=== PATIENT | female | born 1970 | race Caucasian/White ===

== ENCOUNTER 2020-02-17 15:01 | Observation (INO) ==
[2020-02-17 17:46] LABS: AMYLASE 16 Units/L (25-115); BLOOD UREA NITROGEN 9 mg/dL (7-18); CALCIUM 8.8 mg/dL (8.5-10.1); CARBON DIOXIDE 33.5 mmol/L (21-32); CHLORIDE 100 mmol/L (98-107); COR NA(FOR HYPERGLY) 138 mmol/L (136-145); CREATININE 1.13 mg/dL (0.55-1.02); LIPASE 89 Units/L (73-393); SODIUM 137 mmol/L (136-145); eGFR NON BLACK RACES 54 (>60)
[2020-02-17] MEDS ORDERED: D5 NS + KCL 20 MEQ/L 1,000 ML IV SCH (18:00)
[2020-02-17] MEDS ORDERED: D5 1/2 NS 1000 ML 1,000 ML IV SCH (18:00)
[2020-02-17] MEDS ORDERED: D5 1/2 NS + KCL 20 MEQ/L 1,000 ML IV ONE (18:06)
[2020-02-17 18:19] LABS: BASOPHILS % (AUTO) 0.5 % (0.2-1.0); EOSINOPHILS # (AUTO) 0.2 x10^3/uL (0.0-0.2); EOSINOPHILS % (AUTO) 2.7 % (0.9-2.9); HEMATOCRIT 34.4 % (36.0-47.0); HEMOGLOBIN 11.7 g/dL (12.0-16.0); LYMPHOCYTES # (AUTO) 0.6 X10^3/uL (1.3-2.9); LYMPHOCYTES % (AUTO) 9.8 % (21.0-51.0); MEAN CORPUSCULAR HGB CONC 34.1 g/dL (33.0-35.0); MEAN PLATELET VOLUME 11.5 fL (7.4-11.0); MONOCYTES # (AUTO) 1.1 x10^3/uL (0.3-0.8); MONOCYTES % (AUTO) 19.5 % (0.0-13.0); NEUTROPHILS % (AUTO) 67.5 % (42.0-75.0); PLATELET COUNT 157 X10^3/uL (150.0-450.0); RED BLOOD COUNT 3.77 X10^6/uL (3.5-5.4); RED CELL DISTRIBUTION WIDTH 13.1 % (11.6-16.5); WHITE BLOOD COUNT 5.9 X10^3/uL (3.6-10.0)
[2020-02-17] MEDS: FLAGYL IV PREMIX 500 MG BAG 500 MG/100 ML BAG IV SCH (18:19)
[2020-02-17] MEDS: D5 1/2 NS + KCL 20 MEQ/L 1,000 ML IV SCH (18:19)
[2020-02-17] MEDS: PROTONIX INJ 40 MG VIAL IVP SCH (18:20)
[2020-02-17] MEDS: ZOFRAN INJ 4 MG VIAL IVP PRN (18:50)
--- NOTE | 2020-02-17 22:46 | CT ---
CT abdomen and pelvis with contrastIndication: Abdominal pain and diarrheaTECHNIQUEHelical images through the abdomen and pelvis after IV and oral contrast. Coronal and sagittal reformats providedCOMPARISONNone availableFINDINGSLimited images through the lung bases demonstrate no acute abnormality. Review of bone windows demonstrates no destructive osseous lesion with mild SI joint DJDAbdomen: The upper portion of the liver is excluded from the field of view as is the spleen. However, there is attic steatosis. Cholelithiasis is noted. The spleen, pancreas and adrenal glands are normal. The kidneys demonstrate no hydroureteronephrosis.The stomach and small bowel are normal with oral contrast reaching the cecum without obstruction. The appendix is normal. The colon is relatively diffusely thick-walled, with perhaps the rectum and lower sigmoid colon appearing more normal.Few vascular calcifications are noted. The kidneys show no hydroureteronephrosis or stonePelvis: Urinary bladder, rectum, uterus and adnexa demonstrate no acute abnormality.IMPRESSION1. Colonic inflammation, generally worse proximally suggesting either inflammatory or infectious colitis. Correlate clinically2. Hepatic steatosis, diverticulosis, few vascular calcifications, spine DJD and other findings as above.Electronically signed by: VALENCIA BLACKWELL (Feb 17, 2020 22:44:31)
[2020-02-18] MEDS: D5 1/2 NS + KCL 20 MEQ/L 1,000 ML IV SCH ×3 (02:10→18:05)
[2020-02-18] MEDS: FLAGYL IV PREMIX 500 MG BAG 500 MG/100 ML BAG IV SCH ×3 (02:11→17:59)
[2020-02-18] MEDS: ZOFRAN INJ 4 MG VIAL IVP PRN ×2 (03:54→09:00)
[2020-02-18 07:26] LABS: BASOPHILS % (AUTO) 0.8 % (0.2-1.0); EOSINOPHILS # (AUTO) 0.1 x10^3/uL (0.0-0.2); EOSINOPHILS % (AUTO) 2.4 % (0.9-2.9); HEMATOCRIT 31.5 % (36.0-47.0); HEMOGLOBIN 10.7 g/dL (12.0-16.0); LYMPHOCYTES # (AUTO) 0.8 X10^3/uL (1.3-2.9); LYMPHOCYTES % (AUTO) 14.1 % (21.0-51.0); MEAN CORPUSCULAR HEMOGLOBIN 30.4 pg (27.0-34.0); MEAN CORPUSCULAR HGB CONC 33.9 g/dL (33.0-35.0); MEAN CORPUSCULAR VOLUME 89.6 fL (80.0-100.0); MEAN PLATELET VOLUME 10.4 fL (7.4-11.0); MONOCYTES # (AUTO) 1.1 x10^3/uL (0.3-0.8); MONOCYTES % (AUTO) 18.9 % (0.0-13.0); NEUTROPHILS # (AUTO) 3.8 x10^3/uL (2.2-4.8); NEUTROPHILS % (AUTO) 63.8 % (42.0-75.0); PLATELET COUNT 158 X10^3/uL (150.0-450.0); RED BLOOD COUNT 3.52 X10^6/uL (3.5-5.4); RED CELL DISTRIBUTION WIDTH 13.2 % (11.6-16.5)
[2020-02-18 07:31] LABS: BLOOD UREA NITROGEN 4 mg/dL (7-18); CALCIUM 8.2 mg/dL (8.5-10.1); CARBON DIOXIDE 30.1 mmol/L (21-32); CHLORIDE 100 mmol/L (98-107); COR NA(FOR HYPERGLY) 139 mmol/L (136-145); CREATININE 0.88 mg/dL (0.55-1.02); MAGNESIUM 1.6 mg/dL (1.7-2.9); SODIUM 138 mmol/L (136-145); eGFR NON BLACK RACES > 60 (>60)
[2020-02-18] MEDS ORDERED: K-DUR TAB 20 MEQ PO ONE ×2 (08:20→08:24)
[2020-02-18] MEDS: PROTONIX INJ 40 MG VIAL IVP SCH (08:25)
[2020-02-18] MEDS: SOLU-Medrol 40 MG VIAL IVP SCH ×3 (08:25→21:00)
--- NOTE | 2020-02-18 08:25 | DR.PROGNOT ---
Hospital Progress Notes - Progress Note for Day of: Progress Note Date: 02/18/20 - Chief Complaint Chief Complaint: still having severe diarrhea and abdominal pain more upper and RUQ . c/o nausea and having low grade fever . K 2.9. CBC and CMP otherwise normal . out Pt C-Dif was negative .. occult blood was positive. CT showed gallstones and proximal colitis . - Past Medical Family Social History Past Med/Fam/Surg Hx: No changes since H&P Allergies: Allergies No Known Drug Allergies Allergy (Verified 02/17/20 17:09) - Review Of Systems ROS: No change since H&P - Vital Signs Vital Signs: Temperature 99.9 F Pulse Rate [Left Brachial] 82 Respiratory Rate 20 Blood Pressure [Left Arm] 130/70 O2 Sat by Pulse Oximetry 97 - Physical Exam Oriented: Normal Eyes: Normal Ear: Normal Nose: Normal Throat: Normal Respiratory: Normal Cardiovascular: Normal : Normal GI:Auscultation: Decreased GI: Tenderness: Diffuse, RUQ (soft abdomen with diffuse tenderness more RUQ and epigastric .no rebound ) Skin: Normal Musculoskeletal: Normal Psychiatric: Normal Speech Pattern: Clear - Laboratory and Diagnostics Result Diagrams: 02/18/20 07:14 02/18/20 07:14 Labs: Laboratory WBC 6.0 X10^3/uL (3.6-10.0) 02/18/20 07:14 RBC 3.52 X10^6/uL (3.5-5.4) 02/18/20 07:14 Hgb 10.7 g/dL (12.0-16.0) L 02/18/20 07:14 Hct 31.5 % (36.0-47.0) L 02/18/20 07:14 MCV 89.6 fL (80.0-100.0) 02/18/20 07:14 MCH 30.4 pg (27.0-34.0) 02/18/20 07:14 MCHC 33.9 g/dL (33.0-35.0) 02/18/20 07:14 RDW 13.2 % (11.6-16.5) 02/18/20 07:14 Plt Count 158 X10^3/uL (150.0-450.0) 02/18/20 07:14 Plt Count Comment Cancelled 02/17/20 17:24 MPV 10.4 fL (7.4-11.0) 02/18/20 07:14 Neut % (Auto) 63.8 % (42.0-75.0) 02/18/20 07:14 Lymph % (Auto) 14.1 % (21.0-51.0) L 02/18/20 07:14 [place] % (Auto) 18.9 % (0.0-13.0) H 02/18/20 07:14 Eos % (Auto) 2.4 % (0.9-2.9) 02/18/20 07:14 Baso % (Auto) 0.8 % (0.2-1.0) 02/18/20 07:14 Neut # (Auto) 3.8 x10^3/uL (2.2-4.8) 02/18/20 07:14 Lymph # (Auto) 0.8 X10^3/uL (1.3-2.9) L 02/18/20 07:14 [place] # (Auto) 1.1 x10^3/uL (0.3-0.8) H 02/18/20 07:14 Eos # (Auto) 0.1 x10^3/uL (0.0-0.2) 02/18/20 07:14 Baso # (Auto) 0.0 X10^3/uL (0.0-0.1) 02/18/20 07:14 Absolute Nucleated RBC 0.1 /100WBC 02/18/20 07:14 Total Counted Cancelled 02/17/20 17:24 Neutrophils % (Manual) Cancelled 02/17/20 17:24 Band Neutrophils % Cancelled 02/17/20 17:24 Lymphocytes % (Manual) Cancelled 02/17/20 17:24 Monocytes % (Manual) Cancelled 02/17/20 17:24 Eosinophils % (Manual) Cancelled 02/17/20 17:24 Basophils % (Manual) Cancelled 02/17/20 17:24 Metamyelocytes % Cancelled 02/17/20 17:24 Myelocytes % Cancelled 02/17/20 17:24 Promyelocytes % Cancelled 02/17/20 17:24 Nucleated RBCs Cancelled 02/17/20 17:24 Atypical Lymphocytes Cancelled 02/17/20 17:24 Blast Cells Cancelled 02/17/20 17:24 Smudge Cells Cancelled 02/17/20 17:24 Toxic Granulation Cancelled 02/17/20 17:24 Dohle Bodies Cancelled 02/17/20 17:24 Ld Rods Cancelled 02/17/20 17:24 Plt Clumps, EDTA Cancelled 02/17/20 17:24 Giant Platelets Cancelled 02/17/20 17:24 Plt Morphology Comment Cancelled 02/17/20 17:24 RBC Morphology Cancelled 02/17/20 17:24 Dimorphic RBCs Cancelled 02/17/20 17:24 Polychromasia Cancelled 02/17/20 17:24 Hypochromasia Cancelled 02/17/20 17:24 Poikilocytosis Cancelled 02/17/20 17:24 Basophilic Stippling Cancelled 02/17/20 17:24 Anisocytosis Cancelled 02/17/20 17:24 Microcytosis Cancelled 02/17/20 17:24 Macrocytosis Cancelled 02/17/20 17:24 Spherocytes Cancelled 02/17/20 17:24 Pappenheimer Bodies Cancelled 02/17/20 17:24 Sickle Cells Cancelled 02/17/20 17:24 Target Cells Cancelled 02/17/20 17:24 Tear Drop Cells Cancelled 02/17/20 17:24 Ovalocytes Cancelled 02/17/20 17:24 Stomatocytes Cancelled 02/17/20 17:24 Helmet Cells Cancelled 02/17/20 17:24 [place] Bodies Cancelled 02/17/20 17:24 [place] Rings Cancelled 02/17/20 17:24 [place] Cells Cancelled 02/17/20 17:24 Crenated Cell Cancelled 02/17/20 17:24 Acanthocytes (Spur) Cancelled 02/17/20 17:24 Rouleaux Cancelled 02/17/20 17:24 Schistocytes Cancelled 02/17/20 17:24 Sodium 138 mmol/L (136-145) 02/18/20 07:14 Corrected Sodium 139 mmol/L (136-145) 02/18/20 07:14 Potassium 2.8 mmol/L (3.5-5.1) L* 02/18/20 07:14 Chloride 100 mmol/L (98-107) 02/18/20 07:14 Carbon Dioxide 30.1 mmol/L (21-32) 02/18/20 07:14 BUN 4 mg/dL (7-18) L 02/18/20 07:14 Creatinine 0.88 mg/dL (0.55-1.02) 02/18/20 07:14 Est GFR (MDRD) Af Amer > 60 (>60) 02/18/20 07:14 Est GFR (MDRD) Non-Af > 60 (>60) 02/18/20 07:14 Glucose 131 mg/dL (65-99) H 02/18/20 07:14 Calcium 8.2 mg/dL (8.5-10.1) L 02/18/20 07:14 Magnesium 1.6 mg/dL (1.7-2.9) L 02/18/20 07:14 Amylase 16 Units/L (25-115) L 02/17/20 17:24 Lipase 89 Units/L (73-393) 02/17/20 17:24 Stl C. diff Tox B Gene Negative (NEGATIVE) 02/17/20 19:58 Stl C. diff 027-NAP1-BI Negative (NEGATIVE) 02/17/20 19:58 - Assessment and Plan 1: acute colitis , IBD vs C dif . dehydration and hypokalemia . cholelathiasis . on IVF . K supplement .IV Flagyl. IV steroids. keep NPO ( may have water ) .. repeat abdominal xray .
[2020-02-18] MEDS: DILAUDID INJ IVP PRN (08:42)
--- NOTE | 2020-02-18 12:10 | RAD ---
HISTORYDiarrhea and vomitingSTUDYKUBCOMPARISONCT abdomen 02/17/2020FINDINGSThere are focal areas of mild gaseous dilatation of the colon. No significant small bowel distension, ascites, mass formation or abnormal calcification seen.IMPRESSIONFindings described consistent with a mild nonobstructing colon ileus.Electronically signed by: FABIAN FRANCES (Feb 18, 2020 12:07:25)
[2020-02-18 15:53] VITALS: BMI 50.3
[2020-02-18] MEDS ORDERED: MAGNESIUM SULFATE 1 GRAM/100 mL PREMIX 1 GM/100 ML BAG IV PRN (20:44)
[2020-02-19] MEDS: D5 1/2 NS + KCL 20 MEQ/L 1,000 ML IV SCH ×4 (00:59→18:18)
[2020-02-19] MEDS: FLAGYL IV PREMIX 500 MG BAG 500 MG/100 ML BAG IV SCH ×3 (00:59→17:56)
[2020-02-19] MEDS: SOLU-Medrol 40 MG VIAL IVP SCH ×3 (05:07→21:01)
[2020-02-19 06:02] LABS: BASOPHILS % (AUTO) 0.5 % (0.2-1.0); EOSINOPHILS % (AUTO) 0.1 % (0.9-2.9); HEMATOCRIT 33.8 % (36.0-47.0); HEMOGLOBIN 11.4 g/dL (12.0-16.0); LYMPHOCYTES # (AUTO) 0.6 X10^3/uL (1.3-2.9); LYMPHOCYTES % (AUTO) 15.3 % (21.0-51.0); MEAN CORPUSCULAR HEMOGLOBIN 30.3 pg (27.0-34.0); MEAN CORPUSCULAR HGB CONC 33.8 g/dL (33.0-35.0); MEAN CORPUSCULAR VOLUME 89.8 fL (80.0-100.0); MEAN PLATELET VOLUME 10.5 fL (7.4-11.0); MONOCYTES # (AUTO) 0.3 x10^3/uL (0.3-0.8); NEUTROPHILS # (AUTO) 3.2 x10^3/uL (2.2-4.8); NEUTROPHILS % (AUTO) 77.1 % (42.0-75.0); PLATELET COUNT 152 X10^3/uL (150.0-450.0); RED BLOOD COUNT 3.77 X10^6/uL (3.5-5.4); RED CELL DISTRIBUTION WIDTH 13.3 % (11.6-16.5); WHITE BLOOD COUNT 4.1 X10^3/uL (3.6-10.0)
[2020-02-19 06:13] LABS: ALANINE AMINOTRANSFERASE 53 Units/L (12-78); ALBUMIN 2.1 g/dL (3.4-5.0); ALKALINE PHOSPHATASE 41 Units/L (46-116); ASPARTATE AMINO TRANSFERASE 23 Units/L (15-37); BLOOD UREA NITROGEN 6 mg/dL (7-18); CALCIUM 8.4 mg/dL (8.5-10.1); CARBON DIOXIDE 29.6 mmol/L (21-32); CHLORIDE 102 mmol/L (98-107); COR CA(FOR HYPOALB) 9.9 mg/dL (8.5-10.1); COR NA(FOR HYPERGLY) 142 mmol/L (136-145); CREATININE 0.78 mg/dL (0.55-1.02); MAGNESIUM 1.9 mg/dL (1.7-2.9); SODIUM 139 mmol/L (136-145); TOTAL PROTEIN 6.4 g/dL (6.4-8.2); eGFR NON BLACK RACES > 60 (>60)
[2020-02-19] MEDS ORDERED: K-DUR TAB 20 MEQ PO ONE (08:43)
--- NOTE | 2020-02-19 08:48 | DR.PROGNOT ---
Hospital Progress Notes - Progress Note for Day of: Progress Note Date: 02/19/20 - Chief Complaint Chief Complaint: feeling better with less diarrhea . still having Rt side abdominal pain . .no vomiting today . C-Dif x2 was negative. K 3.2 .WBC 4.1. Hgb 11.4. afebrile today - Past Medical Family Social History Past Med/Fam/Surg Hx: No changes since H&P Allergies: Allergies No Known Drug Allergies Allergy (Verified 02/17/20 17:09) - Review Of Systems ROS: No change since H&P - Vital Signs Vital Signs: Temperature 97.5 F Pulse Rate [Left Brachial] 68 Respiratory Rate 21 Blood Pressure [Left Arm] 132/68 O2 Sat by Pulse Oximetry 92 - Physical Exam Oriented: Normal Eyes: Normal Ear: Normal Nose: Normal Throat: Normal Respiratory: Normal Cardiovascular: Normal : Normal GI:Auscultation: Decreased GI: Tenderness: Diffuse, RUQ (soft abdomen with diffuse tenderness more RUQ and epigastric .no rebound ) Skin: Normal Musculoskeletal: Normal Psychiatric: Normal Speech Pattern: Clear - Laboratory and Diagnostics Result Diagrams: 02/19/20 05:38 02/19/20 05:38 Labs: Laboratory WBC 4.1 X10^3/uL (3.6-10.0) 02/19/20 05:38 RBC 3.77 X10^6/uL (3.5-5.4) 02/19/20 05:38 Hgb 11.4 g/dL (12.0-16.0) L 02/19/20 05:38 Hct 33.8 % (36.0-47.0) L 02/19/20 05:38 MCV 89.8 fL (80.0-100.0) 02/19/20 05:38 MCH 30.3 pg (27.0-34.0) 02/19/20 05:38 MCHC 33.8 g/dL (33.0-35.0) 02/19/20 05:38 RDW 13.3 % (11.6-16.5) 02/19/20 05:38 Plt Count 152 X10^3/uL (150.0-450.0) 02/19/20 05:38 Plt Count Comment Cancelled 02/17/20 17:24 MPV 10.5 fL (7.4-11.0) 02/19/20 05:38 Neut % (Auto) 77.1 % (42.0-75.0) H 02/19/20 05:38 Lymph % (Auto) 15.3 % (21.0-51.0) L 02/19/20 05:38 [place] % (Auto) 7.0 % (0.0-13.0) 02/19/20 05:38 Eos % (Auto) 0.1 % (0.9-2.9) L 02/19/20 05:38 Baso % (Auto) 0.5 % (0.2-1.0) 02/19/20 05:38 Neut # (Auto) 3.2 x10^3/uL (2.2-4.8) 02/19/20 05:38 Lymph # (Auto) 0.6 X10^3/uL (1.3-2.9) L 02/19/20 05:38 [place] # (Auto) 0.3 x10^3/uL (0.3-0.8) 02/19/20 05:38 Eos # (Auto) 0.0 x10^3/uL (0.0-0.2) 02/19/20 05:38 Baso # (Auto) 0.0 X10^3/uL (0.0-0.1) 02/19/20 05:38 Absolute Nucleated RBC 0.2 /100WBC 02/19/20 05:38 Total Counted Cancelled 02/17/20 17:24 Neutrophils % (Manual) Cancelled 02/17/20 17:24 Band Neutrophils % Cancelled 02/17/20 17:24 Lymphocytes % (Manual) Cancelled 02/17/20 17:24 Monocytes % (Manual) Cancelled 02/17/20 17:24 Eosinophils % (Manual) Cancelled 02/17/20 17:24 Basophils % (Manual) Cancelled 02/17/20 17:24 Metamyelocytes % Cancelled 02/17/20 17:24 Myelocytes % Cancelled 02/17/20 17:24 Promyelocytes % Cancelled 02/17/20 17:24 Nucleated RBCs Cancelled 02/17/20 17:24 Atypical Lymphocytes Cancelled 02/17/20 17:24 Blast Cells Cancelled 02/17/20 17:24 Smudge Cells Cancelled 02/17/20 17:24 Toxic Granulation Cancelled 02/17/20 17:24 Dohle Bodies Cancelled 02/17/20 17:24 Ld Rods Cancelled 02/17/20 17:24 Plt Clumps, EDTA Cancelled 02/17/20 17:24 Giant Platelets Cancelled 02/17/20 17:24 Plt Morphology Comment Cancelled 02/17/20 17:24 RBC Morphology Cancelled 02/17/20 17:24 Dimorphic RBCs Cancelled 02/17/20 17:24 Polychromasia Cancelled 02/17/20 17:24 Hypochromasia Cancelled 02/17/20 17:24 Poikilocytosis Cancelled 02/17/20 17:24 Basophilic Stippling Cancelled 02/17/20 17:24 Anisocytosis Cancelled 02/17/20 17:24 Microcytosis Cancelled 02/17/20 17:24 Macrocytosis Cancelled 02/17/20 17:24 Spherocytes Cancelled 02/17/20 17:24 Pappenheimer Bodies Cancelled 02/17/20 17:24 Sickle Cells Cancelled 02/17/20 17:24 Target Cells Cancelled 02/17/20 17:24 Tear Drop Cells Cancelled 02/17/20 17:24 Ovalocytes Cancelled 02/17/20 17:24 Stomatocytes Cancelled 02/17/20 17:24 Helmet Cells Cancelled 02/17/20 17:24 [place] Bodies Cancelled 02/17/20 17:24 [place] Rings Cancelled 02/17/20 17:24 [place] Cells Cancelled 02/17/20 17:24 Crenated Cell Cancelled 02/17/20 17:24 Acanthocytes (Spur) Cancelled 02/17/20 17:24 Rouleaux Cancelled 02/17/20 17:24 Schistocytes Cancelled 02/17/20 17:24 ESR 87 MM/HOUR (0-20) H 02/18/20 07:14 Sodium 139 mmol/L (136-145) 02/19/20 05:38 Corrected Sodium 142 mmol/L (136-145) 02/19/20 05:38 Potassium 3.2 mmol/L (3.5-5.1) L 02/19/20 05:38 Chloride 102 mmol/L (98-107) 02/19/20 05:38 Carbon Dioxide 29.6 mmol/L (21-32) 02/19/20 05:38 BUN 6 mg/dL (7-18) L 02/19/20 05:38 Creatinine 0.78 mg/dL (0.55-1.02) 02/19/20 05:38 Est GFR (MDRD) Af Amer > 60 (>60) 02/19/20 05:38 Est GFR (MDRD) Non-Af > 60 (>60) 02/19/20 05:38 Glucose 226 mg/dL (65-99) H 02/19/20 05:38 Calcium 8.4 mg/dL (8.5-10.1) L 02/19/20 05:38 Corrected Calcium 9.9 mg/dL (8.5-10.1) 02/19/20 05:38 Magnesium 1.9 mg/dL (1.7-2.9) 02/19/20 05:38 Total Bilirubin 0.20 mg/dL (0.2-1.0) 02/19/20 05:38 AST 23 Units/L (15-37) 02/19/20 05:38 ALT 53 Units/L (12-78) 02/19/20 05:38 Alkaline Phosphatase 41 Units/L (46-116) L 02/19/20 05:38 Total Protein 6.4 g/dL (6.4-8.2) 02/19/20 05:38 Albumin 2.1 g/dL (3.4-5.0) L 02/19/20 05:38 Globulin 4.3 g/dL (2.5-4.5) 02/19/20 05:38 Albumin/Globulin Ratio 0.5 Ratio (1.1-2.1) L 02/19/20 05:38 Amylase 16 Units/L (25-115) L 02/17/20 17:24 Lipase 89 Units/L (73-393) 02/17/20 17:24 Stl C. diff Tox B Gene Negative (NEGATIVE) 02/18/20 23:31 Stl C. diff 027-NAP1-BI Negative (NEGATIVE) 02/18/20 23:31 - Assessment and Plan 1: acute colitis , IBD vs C dif . dehydration and hypokalemia . cholelathiasis . on IVF . K supplement .IV Flagyl. IV steroids. to start on full liquid diet . IVF with K supplement . future colonoscopy .
[2020-02-19] MEDS: PROTONIX INJ 40 MG VIAL IVP SCH (09:30)
[2020-02-19] MEDS: LOVENOX INJ 40 MG SYR SC SCH (09:30)
[2020-02-20] MEDS: FLAGYL IV PREMIX 500 MG BAG 500 MG/100 ML BAG IV SCH ×3 (01:12→20:36)
[2020-02-20] MEDS: D5 1/2 NS + KCL 20 MEQ/L 1,000 ML IV SCH ×3 (02:00→19:00)
[2020-02-20] MEDS: SOLU-Medrol 40 MG VIAL IVP SCH (05:05)
[2020-02-20 06:23] LABS: BASOPHILS % (AUTO) 0.7 % (0.2-1.0); HEMATOCRIT 33.9 % (36.0-47.0); HEMOGLOBIN 11.5 g/dL (12.0-16.0); LYMPHOCYTES # (AUTO) 0.8 X10^3/uL (1.3-2.9); LYMPHOCYTES % (AUTO) 14.4 % (21.0-51.0); MEAN CORPUSCULAR HEMOGLOBIN 30.7 pg (27.0-34.0); MEAN CORPUSCULAR HGB CONC 33.8 g/dL (33.0-35.0); MEAN CORPUSCULAR VOLUME 90.8 fL (80.0-100.0); MEAN PLATELET VOLUME 11.6 fL (7.4-11.0); MONOCYTES # (AUTO) 0.3 x10^3/uL (0.3-0.8); MONOCYTES % (AUTO) 5.9 % (0.0-13.0); NEUTROPHILS # (AUTO) 4.2 x10^3/uL (2.2-4.8); PLATELET COUNT 174 X10^3/uL (150.0-450.0); RED BLOOD COUNT 3.74 X10^6/uL (3.5-5.4); RED CELL DISTRIBUTION WIDTH 13.1 % (11.6-16.5); WHITE BLOOD COUNT 5.4 X10^3/uL (3.6-10.0)
[2020-02-20 06:36] LABS: ALANINE AMINOTRANSFERASE 59 Units/L (12-78); ALBUMIN 2.2 g/dL (3.4-5.0); ALKALINE PHOSPHATASE 44 Units/L (46-116); ASPARTATE AMINO TRANSFERASE 25 Units/L (15-37); BLOOD UREA NITROGEN 10 mg/dL (7-18); CALCIUM 8.3 mg/dL (8.5-10.1); CARBON DIOXIDE 27.7 mmol/L (21-32); CHLORIDE 103 mmol/L (98-107); COR CA(FOR HYPOALB) 9.7 mg/dL (8.5-10.1); COR NA(FOR HYPERGLY) 140 mmol/L (136-145); CREATININE 0.87 mg/dL (0.55-1.02); SODIUM 138 mmol/L (136-145); TOTAL PROTEIN 6.2 g/dL (6.4-8.2); eGFR NON BLACK RACES > 60 (>60)
--- NOTE | 2020-02-20 08:40 | US ---
HISTORYRUQ PAINSTUDYGALL BLADDERCOMPARISONTECHNIQUEMultiple payton scale and color flow Doppler images of the right upper quadrant were obtained.FINDINGSThe liver is echogenic consistent with fatty liver. The right lobe of the liver is mildly enlarged measuring 17.6 cm in length. There is normal flow in the main portal vein.. No focal intraparenchymal mass or intrahepatic biliary ductal dilatation can be observed. The gallbladder demonstrates multiple small echogenic stones. They are mobile and shadow there is no gallbladder wall thickening. The.. The common bile duct is unremarkable measuring 2.6 mm.. No pericholecystic fluid or gallbladder wall thickening can be observed .The right kidney appears normal in size without focal parenchymal mass or nephrolithiasis. The right kidney measurers 11 point 2 cm in length cortical thickness 1.57 cm. There is normal vascular flow to the right kidney with a resistance index of 0.50. AP diameter of the kidney is 5.3 and transverse diameter of the right kidney is 6.8 cm.. No hydronephrosis or perirenal fluid can be observed. The pancreatic head and body are unremarkable. The pancreatic tail is largely obscured by overlying bowel gas.The aorta tapers normally measuring 14.5 mm AP proximal 14.9 mm AP mid and 15.6 mm AP distal.IMPRESSIONCholelithiasis without signs of cholecystitis. Common duct is normal at 2.6 mm. The liver is mildly enlarged and echogenic consistent with fatty liver.There is normal portal venous and flow normal hepatic venous flow. The right kidney is normal.The aorta is normal without aneurysm.Electronically signed by: SAVANAH ADLER (Feb 20, 2020 08:39:01)
[2020-02-20] MEDS: LOVENOX INJ 40 MG SYR SC SCH (08:57)
[2020-02-20] MEDS: PROTONIX INJ 40 MG VIAL IVP SCH (08:57)
--- NOTE | 2020-02-20 09:18 | DR.PROGNOT ---
Hospital Progress Notes - Progress Note for Day of: Progress Note Date: 02/20/20 - Chief Complaint Chief Complaint: feeling better with less diarrhea . still having Rt side abdominal pain . .no vomiting today . C-Dif x2 was negative. K 3.8 .WBC 5.4. Hgb 11.5.BS 190. afebrile today - Past Medical Family Social History Past Med/Fam/Surg Hx: No changes since H&P Allergies: Allergies No Known Drug Allergies Allergy (Verified 02/17/20 17:09) - Review Of Systems ROS: No change since H&P - Vital Signs Vital Signs: Temperature 98.5 F Pulse Rate [Left Brachial] 76 Respiratory Rate 18 Blood Pressure [Left Arm] 175/75 O2 Sat by Pulse Oximetry 96 - Physical Exam Oriented: Normal Eyes: Normal Ear: Normal Nose: Normal Throat: Normal Respiratory: Normal Cardiovascular: Normal : Normal GI:Auscultation: Decreased GI: Tenderness: Diffuse, RUQ (soft abdomen with diffuse tenderness more RUQ and epigastric .no rebound ) Skin: Normal Musculoskeletal: Normal Psychiatric: Normal Speech Pattern: Clear, Appropriate - Laboratory and Diagnostics Result Diagrams: 02/20/20 06:04 02/20/20 06:04 Labs: Laboratory WBC 5.4 X10^3/uL (3.6-10.0) 02/20/20 06:04 RBC 3.74 X10^6/uL (3.5-5.4) 02/20/20 06:04 Hgb 11.5 g/dL (12.0-16.0) L 02/20/20 06:04 Hct 33.9 % (36.0-47.0) L 02/20/20 06:04 MCV 90.8 fL (80.0-100.0) 02/20/20 06:04 MCH 30.7 pg (27.0-34.0) 02/20/20 06:04 MCHC 33.8 g/dL (33.0-35.0) 02/20/20 06:04 RDW 13.1 % (11.6-16.5) 02/20/20 06:04 Plt Count 174 X10^3/uL (150.0-450.0) 02/20/20 06:04 Plt Count Comment Cancelled 02/17/20 17:24 MPV 11.6 fL (7.4-11.0) H 02/20/20 06:04 Neut % (Auto) 79.0 % (42.0-75.0) H 02/20/20 06:04 Lymph % (Auto) 14.4 % (21.0-51.0) L 02/20/20 06:04 [place] % (Auto) 5.9 % (0.0-13.0) 02/20/20 06:04 Eos % (Auto) 0.0 % (0.9-2.9) L 02/20/20 06:04 Baso % (Auto) 0.7 % (0.2-1.0) 02/20/20 06:04 Neut # (Auto) 4.2 x10^3/uL (2.2-4.8) 02/20/20 06:04 Lymph # (Auto) 0.8 X10^3/uL (1.3-2.9) L 02/20/20 06:04 [place] # (Auto) 0.3 x10^3/uL (0.3-0.8) 02/20/20 06:04 Eos # (Auto) 0.0 x10^3/uL (0.0-0.2) 02/20/20 06:04 Baso # (Auto) 0.0 X10^3/uL (0.0-0.1) 02/20/20 06:04 Absolute Nucleated RBC 0.1 /100WBC 02/20/20 06:04 Total Counted Cancelled 02/17/20 17:24 Neutrophils % (Manual) Cancelled 02/17/20 17:24 Band Neutrophils % Cancelled 02/17/20 17:24 Lymphocytes % (Manual) Cancelled 02/17/20 17:24 Monocytes % (Manual) Cancelled 02/17/20 17:24 Eosinophils % (Manual) Cancelled 02/17/20 17:24 Basophils % (Manual) Cancelled 02/17/20 17:24 Metamyelocytes % Cancelled 02/17/20 17:24 Myelocytes % Cancelled 02/17/20 17:24 Promyelocytes % Cancelled 02/17/20 17:24 Nucleated RBCs Cancelled 02/17/20 17:24 Atypical Lymphocytes Cancelled 02/17/20 17:24 Blast Cells Cancelled 02/17/20 17:24 Smudge Cells Cancelled 02/17/20 17:24 Toxic Granulation Cancelled 02/17/20 17:24 Dohle Bodies Cancelled 02/17/20 17:24 Ld Rods Cancelled 02/17/20 17:24 Plt Clumps, EDTA Cancelled 02/17/20 17:24 Giant Platelets Cancelled 02/17/20 17:24 Plt Morphology Comment Cancelled 02/17/20 17:24 RBC Morphology Cancelled 02/17/20 17:24 Dimorphic RBCs Cancelled 02/17/20 17:24 Polychromasia Cancelled 02/17/20 17:24 Hypochromasia Cancelled 02/17/20 17:24 Poikilocytosis Cancelled 02/17/20 17:24 Basophilic Stippling Cancelled 02/17/20 17:24 Anisocytosis Cancelled 02/17/20 17:24 Microcytosis Cancelled 02/17/20 17:24 Macrocytosis Cancelled 02/17/20 17:24 Spherocytes Cancelled 02/17/20 17:24 Pappenheimer Bodies Cancelled 02/17/20 17:24 Sickle Cells Cancelled 02/17/20 17:24 Target Cells Cancelled 02/17/20 17:24 Tear Drop Cells Cancelled 02/17/20 17:24 Ovalocytes Cancelled 02/17/20 17:24 Stomatocytes Cancelled 02/17/20 17:24 Helmet Cells Cancelled 02/17/20 17:24 [place] Bodies Cancelled 02/17/20 17:24 [place] Rings Cancelled 02/17/20 17:24 [place] Cells Cancelled 02/17/20 17:24 Crenated Cell Cancelled 02/17/20 17:24 Acanthocytes (Spur) Cancelled 02/17/20 17:24 Rouleaux Cancelled 02/17/20 17:24 Schistocytes Cancelled 02/17/20 17:24 ESR 87 MM/HOUR (0-20) H 02/18/20 07:14 Sodium 138 mmol/L (136-145) 02/20/20 06:04 Corrected Sodium 140 mmol/L (136-145) 02/20/20 06:04 Potassium 3.8 mmol/L (3.5-5.1) 02/20/20 06:04 Chloride 103 mmol/L (98-107) 02/20/20 06:04 Carbon Dioxide 27.7 mmol/L (21-32) 02/20/20 06:04 BUN 10 mg/dL (7-18) 02/20/20 06:04 Creatinine 0.87 mg/dL (0.55-1.02) 02/20/20 06:04 Est GFR (MDRD) Af Amer > 60 (>60) 02/20/20 06:04 Est GFR (MDRD) Non-Af > 60 (>60) 02/20/20 06:04 Glucose 190 mg/dL (65-99) H 02/20/20 06:04 Calcium 8.3 mg/dL (8.5-10.1) L 02/20/20 06:04 Corrected Calcium 9.7 mg/dL (8.5-10.1) 02/20/20 06:04 Magnesium 1.9 mg/dL (1.7-2.9) 02/19/20 05:38 Total Bilirubin 0.20 mg/dL (0.2-1.0) 02/20/20 06:04 AST 25 Units/L (15-37) 02/20/20 06:04 ALT 59 Units/L (12-78) 02/20/20 06:04 Alkaline Phosphatase 44 Units/L (46-116) L 02/20/20 06:04 Total Protein 6.2 g/dL (6.4-8.2) L 02/20/20 06:04 Albumin 2.2 g/dL (3.4-5.0) L 02/20/20 06:04 Globulin 4.0 g/dL (2.5-4.5) 02/20/20 06:04 Albumin/Globulin Ratio 0.6 Ratio (1.1-2.1) L 02/20/20 06:04 Amylase 16 Units/L (25-115) L 02/17/20 17:24 Lipase 89 Units/L (73-393) 02/17/20 17:24 Stl C. diff Tox B Gene Negative (NEGATIVE) 02/18/20 23:31 Stl C. diff 027-NAP1-BI Negative (NEGATIVE) 02/18/20 23:31 - Assessment and Plan 1: acute colitis , IBD vs C dif . dehydration and hypokalemia ( corrected ). cholelathiasis . on IVF . K supplement .IV Flagyl. to reduce IV steroids . start on bland diet . IVF with K supplement . future colonoscopy .
[2020-02-20] MEDS ORDERED: TYLENOL 325 MG TAB PO PRN (22:16)
[2020-02-21] MEDS: D5 1/2 NS + KCL 20 MEQ/L 1,000 ML IV SCH ×2 (02:00→05:09)
[2020-02-21] MEDS ORDERED: FLAGYL IV PREMIX 500 MG BAG 500 MG/100 ML BAG IV SCH (06:00)
[2020-02-21 06:15] LABS: BASOPHILS % (AUTO) 0.1 % (0.2-1.0); LYMPHOCYTES # (AUTO) 0.8 X10^3/uL (1.3-2.9); LYMPHOCYTES % (AUTO) 11.3 % (21.0-51.0); MEAN CORPUSCULAR HEMOGLOBIN 30.4 pg (27.0-34.0); MEAN CORPUSCULAR HGB CONC 33.4 g/dL (33.0-35.0); MONOCYTES # (AUTO) 0.6 x10^3/uL (0.3-0.8); MONOCYTES % (AUTO) 8.3 % (0.0-13.0); NEUTROPHILS # (AUTO) 5.6 x10^3/uL (2.2-4.8); NEUTROPHILS % (AUTO) 80.3 % (42.0-75.0); PLATELET COUNT 147 X10^3/uL (150.0-450.0); RED BLOOD COUNT 3.63 X10^6/uL (3.5-5.4); WHITE BLOOD COUNT 6.9 X10^3/uL (3.6-10.0)
[2020-02-21 06:35] LABS: ALANINE AMINOTRANSFERASE 47 Units/L (12-78); ALBUMIN 2.1 g/dL (3.4-5.0); ALKALINE PHOSPHATASE 43 Units/L (46-116); ASPARTATE AMINO TRANSFERASE 22 Units/L (15-37); BLOOD UREA NITROGEN 14 mg/dL (7-18); CALCIUM 7.9 mg/dL (8.5-10.1); CARBON DIOXIDE 27.3 mmol/L (21-32); CHLORIDE 105 mmol/L (98-107); COR CA(FOR HYPOALB) 9.4 mg/dL (8.5-10.1); COR NA(FOR HYPERGLY) 141 mmol/L (136-145); CREATININE 0.81 mg/dL (0.55-1.02); SODIUM 139 mmol/L (136-145); TOTAL PROTEIN 5.6 g/dL (6.4-8.2); eGFR NON BLACK RACES > 60 (>60)
[2020-02-21 06:36] LABS: BAND NEUTROPHILS % 2 % (0-10); PLATELET MORPHOLOGY COMMENT NORMAL (NORMAL)
[2020-02-21] MEDS: PROTONIX INJ 40 MG VIAL IVP SCH (08:30)
[2020-02-21] MEDS: DILAUDID INJ IVP PRN (08:32)
[2020-02-21] MEDS: LOVENOX INJ 40 MG SYR SC SCH (08:34)
[2020-02-21] MEDS ORDERED: SOLU-Medrol 40 MG VIAL IVP SCH (09:00)
[2020-02-21 10:50] VITALS: BP 181/80
== END 2020-02-21 11:20 | disposition home or self-care (01) ==
LOC: MED/SURG
PROVIDERS: ADMIT Surgery; ATTEND Surgery
DX: R19.7 Diarrhea, unspecified; I10 Essential (primary) hypertension; R70.0 Elevated erythrocyte sedimentation rate; K52.89 Other specified noninfective gastroenteritis and colitis; E86.0 Dehydration; R50.9 Fever, unspecified; R10.11 Right upper quadrant pain; E87.6 Hypokalemia; R73.09 Other abnormal glucose; K80.51 Calculus of bile duct without cholangitis or cholecystitis with obstruction; R11.2 Nausea with vomiting, unspecified; E66.8 Other obesity; K92.1 Melena; Z79.899 Other long term (current) drug therapy
CPT/HCPCS: 36415; 74000; 74018; 74177; 76705; 80048; 80053; 82150; 82270; 83036; 83690; 83735; 84132; 85025; 85652; 87493; 96360; 96361; 96372; 96374; A4222; C9113; G0378; J1170; J1650; J2405; J2920; J3475; J3490; S0030

== ENCOUNTER 2020-03-20 12:44 | Inpatient (IN) ==
[2020-03-20] MEDS ORDERED: DILAUDID INJ IVP PRN (13:59)
[2020-03-20] MEDS: D5 1/2 NS 1000 ML 1,000 ML IV SCH ×2 (14:41→22:09)
[2020-03-20] MEDS: PROTONIX INJ 40 MG VIAL IVP SCH ×2 (14:46→20:50)
[2020-03-20] MEDS: FLAGYL IV PREMIX 500 MG BAG 500 MG/100 ML BAG IV SCH ×2 (14:47→22:08)
[2020-03-20] MEDS: ZOFRAN INJ 4 MG VIAL IVP PRN ×2 (14:47→20:54)
[2020-03-20 14:48] LABS: BASOPHILS % (AUTO) 0.3 % (0.2-1.0); EOSINOPHILS # (AUTO) 0.1 x10^3/uL (0.0-0.2); EOSINOPHILS % (AUTO) 0.8 % (0.9-2.9); HEMOGLOBIN 10.6 g/dL (12.0-16.0); LYMPHOCYTES # (AUTO) 0.6 X10^3/uL (1.3-2.9); LYMPHOCYTES % (AUTO) 8.5 % (21.0-51.0); MEAN CORPUSCULAR HEMOGLOBIN 29.2 pg (27.0-34.0); MEAN CORPUSCULAR HGB CONC 33.2 g/dL (33.0-35.0); MEAN CORPUSCULAR VOLUME 88.1 fL (80.0-100.0); MONOCYTES # (AUTO) 1.2 x10^3/uL (0.3-0.8); MONOCYTES % (AUTO) 17.2 % (0.0-13.0); NEUTROPHILS # (AUTO) 5.2 x10^3/uL (2.2-4.8); NEUTROPHILS % (AUTO) 73.2 % (42.0-75.0); PLATELET COUNT 306 X10^3/uL (150.0-450.0); RED BLOOD COUNT 3.63 X10^6/uL (3.5-5.4); RED CELL DISTRIBUTION WIDTH 14.2 % (11.6-16.5)
[2020-03-20] MEDS: DILAUDID INJ IVP PRN ×2 (14:49→19:34)
[2020-03-20 15:00] LABS: ALANINE AMINOTRANSFERASE 18 Units/L (12-78); ALBUMIN 1.7 g/dL (3.4-5.0); ALKALINE PHOSPHATASE 46 Units/L (46-116); ASPARTATE AMINO TRANSFERASE 24 Units/L (15-37); BLOOD UREA NITROGEN 6 mg/dL (7-18); CALCIUM 7.9 mg/dL (8.5-10.1); CARBON DIOXIDE 29.8 mmol/L (21-32); CHLORIDE 98 mmol/L (98-107); COR CA(FOR HYPOALB) 9.7 mg/dL (8.5-10.1); COR NA(FOR HYPERGLY) 136 mmol/L (136-145); CREATININE 0.77 mg/dL (0.55-1.02); SODIUM 136 mmol/L (136-145); TOTAL PROTEIN 5.8 g/dL (6.4-8.2); eGFR NON BLACK RACES > 60 (>60)
[2020-03-20] MEDS ORDERED: POTASSIUM CHL 40 MEQ/NS 0.45% 500 ML IV PRN (15:08)
[2020-03-20] MEDS ORDERED: MICRO K EXTEN CAP 10 MEQ PO PRN (15:08)
[2020-03-20] MEDS ORDERED: POTASSIUM CHLORIDE LIQ 20 MEQ UDC PO PRN (15:08)
[2020-03-20] MEDS ORDERED: KLOR-CON PO PRN (15:08)
[2020-03-20 15:15] LABS: BAND NEUTROPHILS % 7 % (0-10)
[2020-03-20 15:17] LABS: PLATELET MORPHOLOGY COMMENT NORMAL (NORMAL)
[2020-03-20 15:20] LABS: ERYTHROCYTE SEDIMENTATION RATE 77 MM/HOUR (0-20)
[2020-03-20] MEDS: MAGNESIUM SULFATE 1 GRAM/100 mL PREMIX 1 GM/100 ML BAG IV PRN ×3 (16:30→20:52)
[2020-03-20] MEDS: POTASSIUM CHL 60 MEQ/NS 0.45% 500 ML IV PRN (16:30)
--- NOTE | 2020-03-20 17:38 | RAD ---
HISTORYABDOMEN PAINSTUDYX-ray abdomen series, one view chest and two views abdomenCOMPARISONX-ray 02/18/[address] 02/17/2020FINDINGSLikely mild cardiomegaly without pulmonary venous congestion. No pneumothorax, focal infiltrate, or pleural effusion is seen. No free intraperitoneal air is seen. There is mild gaseous dilation of the transverse colon and proximal descending colon with loss of normal markings. Findings may represent colitis as seen on prior CT. Little small bowel air is seen. No constipation is seen. Phleboliths are seen in the pelvis.IMPRESSIONProbable colitis changes in the transverse and descending colon.Electronically signed by: Cain Almaraz (Mar 20, 2020 17:37:50)
[2020-03-20 19:45] LABS: APPEARANCE,URINE CLEAR (CLEAR); BILIRUBIN,URINE NEGATIVE (NEGATIVE); BLOOD/HEMOGLOBIN,URINE 1+ (NEGATIVE); COLOR,URINE YELLOW (YELLOW); GLUCOSE, URINE NEGATIVE (NEGATIVE); KETONES,URINE NEGATIVE (NEGATIVE); LEUKOCYTE ESTERASE ,URINE 1+ (NEGATIVE); NITRITES,URINE NEGATIVE (NEGATIVE); PROTEIN,URINE NEGATIVE (NEGATIVE); UROBILINOGEN,URINE NORMAL (NORMAL)
[2020-03-20 19:52] LABS: BACTERIA,URINE TRACE /HPF (NEGATIVE); SQUAMOUS EPITHELIAL CELL,UR MODERATE /HPF (NEGATIVE)
[2020-03-21] MEDS: MAGNESIUM SULFATE 1 GRAM/100 mL PREMIX 1 GM/100 ML BAG IV PRN (00:20)
[2020-03-21] MEDS: DILAUDID INJ IVP PRN ×3 (00:27→10:35)
[2020-03-21] MEDS: D5 1/2 NS 1000 ML 1,000 ML IV SCH ×2 (03:22→05:39)
[2020-03-21] MEDS: FLAGYL IV PREMIX 500 MG BAG 500 MG/100 ML BAG IV SCH ×3 (05:39→21:08)
[2020-03-21 06:08] LABS: BASOPHILS % (AUTO) 0.6 % (0.2-1.0); EOSINOPHILS # (AUTO) 0.1 x10^3/uL (0.0-0.2); HEMATOCRIT 31.7 % (36.0-47.0); HEMOGLOBIN 10.6 g/dL (12.0-16.0); LYMPHOCYTES # (AUTO) 0.7 X10^3/uL (1.3-2.9); LYMPHOCYTES % (AUTO) 14.7 % (21.0-51.0); MEAN CORPUSCULAR HEMOGLOBIN 29.3 pg (27.0-34.0); MEAN CORPUSCULAR HGB CONC 33.3 g/dL (33.0-35.0); MEAN CORPUSCULAR VOLUME 88.1 fL (80.0-100.0); MONOCYTES # (AUTO) 0.8 x10^3/uL (0.3-0.8); MONOCYTES % (AUTO) 16.8 % (0.0-13.0); NEUTROPHILS # (AUTO) 3.3 x10^3/uL (2.2-4.8); NEUTROPHILS % (AUTO) 65.9 % (42.0-75.0); PLATELET COUNT 302 X10^3/uL (150.0-450.0); RED CELL DISTRIBUTION WIDTH 14.2 % (11.6-16.5)
[2020-03-21 06:09] LABS: ALANINE AMINOTRANSFERASE 24 Units/L (12-78); ALBUMIN 1.7 g/dL (3.4-5.0); ALKALINE PHOSPHATASE 46 Units/L (46-116); ASPARTATE AMINO TRANSFERASE 32 Units/L (15-37); BLOOD UREA NITROGEN 5 mg/dL (7-18); CALCIUM 7.7 mg/dL (8.5-10.1); CARBON DIOXIDE 31.2 mmol/L (21-32); CHLORIDE 100 mmol/L (98-107); COR CA(FOR HYPOALB) 9.5 mg/dL (8.5-10.1); COR NA(FOR HYPERGLY) 137 mmol/L (136-145); CREATININE 0.86 mg/dL (0.55-1.02); MAGNESIUM 2.3 mg/dL (1.7-2.9); SODIUM 137 mmol/L (136-145); TOTAL PROTEIN 5.6 g/dL (6.4-8.2); eGFR NON BLACK RACES > 60 (>60)
[2020-03-21] MEDS ORDERED: D5 1/2 NS + KCL 20 MEQ/L 1,000 ML IV ONE (06:15)
[2020-03-21] MEDS: D5 1/2 NS + KCL 20 MEQ/L 1,000 ML IV SCH ×3 (06:19→22:22)
[2020-03-21] MEDS: K-RIDER 10 MEQ/NS 100 ML 10 MEQ/100 ML BAG IV PRN ×3 (06:33→22:22)
[2020-03-21] MEDS: ZOFRAN INJ 4 MG VIAL IVP PRN (07:04)
[2020-03-21] MEDS: PROTONIX INJ 40 MG VIAL IVP SCH ×2 (08:58→20:17)
--- NOTE | 2020-03-21 09:06 | DR.PROGNOT ---
Hospital Progress Notes - Progress Note for Day of: Progress Note Date: 03/21/20 - Chief Complaint Chief Complaint: still c/o mid abdominal pain as well as Rt side . having loose BM , no bleeding. c/o nausea but no vomiting today . K was low 2.4 .. Mg low at 1.3. Albumin low 1.7 .. Hgb 10.6 . C Dif negative. afebrile . - Past Medical Family Social History Past Med/Fam/Surg Hx: No changes since H&P Allergies: Allergies No Known Drug Allergies Allergy (Verified 03/14/20 08:09) - Review Of Systems ROS: No change since H&P - Vital Signs Vital Signs: Temperature 98.3 F Pulse Rate [Right Brachial] 82 Respiratory Rate 18 Blood Pressure [Right Arm] 111/63 Blood Pressure [Left Arm] 145/65 Blood Pressure 125/72 O2 Sat by Pulse Oximetry 96 - Physical Exam Oriented: Normal Eyes: Normal Ear: Normal Nose: Normal Throat: Normal Respiratory: Normal GI:Auscultation: Decreased GI:Palpation: Normal GI: Tenderness: Diffuse (soft abdomen with MODERATE Rt SIDE TENDERNESS , no merline ound or rigidity . BS+) Speech Pattern: Clear, Appropriate - Laboratory and Diagnostics Result Diagrams: 03/21/20 05:40 03/21/20 05:40 Labs: 03/20/20 23:53 Stool - Final Laboratory WBC 5.0 X10^3/uL (3.6-10.0) 03/21/20 05:40 RBC 3.60 X10^6/uL (3.5-5.4) 03/21/20 05:40 Hgb 10.6 g/dL (12.0-16.0) L 03/21/20 05:40 Hct 31.7 % (36.0-47.0) L 03/21/20 05:40 MCV 88.1 fL (80.0-100.0) 03/21/20 05:40 MCH 29.3 pg (27.0-34.0) 03/21/20 05:40 MCHC 33.3 g/dL (33.0-35.0) 03/21/20 05:40 RDW 14.2 % (11.6-16.5) 03/21/20 05:40 Plt Count 302 X10^3/uL (150.0-450.0) 03/21/20 05:40 Plt Count Comment Adequate (ADEQUATE) 03/20/20 14:20 MPV 9.0 fL (7.4-11.0) 03/21/20 05:40 Neut % (Auto) 65.9 % (42.0-75.0) 03/21/20 05:40 Lymph % (Auto) 14.7 % (21.0-51.0) L 03/21/20 05:40 [place] % (Auto) 16.8 % (0.0-13.0) H 03/21/20 05:40 Eos % (Auto) 2.0 % (0.9-2.9) 03/21/20 05:40 Baso % (Auto) 0.6 % (0.2-1.0) 03/21/20 05:40 Neut # (Auto) 3.3 x10^3/uL (2.2-4.8) 03/21/20 05:40 Lymph # (Auto) 0.7 X10^3/uL (1.3-2.9) L 03/21/20 05:40 [place] # (Auto) 0.8 x10^3/uL (0.3-0.8) 03/21/20 05:40 Eos # (Auto) 0.1 x10^3/uL (0.0-0.2) 03/21/20 05:40 Baso # (Auto) 0.0 X10^3/uL (0.0-0.1) 03/21/20 05:40 Absolute Nucleated RBC 0.1 /100WBC 03/21/20 05:40 Total Counted 100 03/20/20 14:20 Neutrophils % (Manual) 39 % (39-76) 03/20/20 14:20 Band Neutrophils % 7 % (0-10) 03/20/20 14:20 Lymphocytes % (Manual) 49 % (13-43) H 03/20/20 14:20 Monocytes % (Manual) 5 % (4-9) 03/20/20 14:20 Plt Morphology Comment Normal (NORMAL) 03/20/20 14:20 RBC Morphology Normal (NORMAL) 03/20/20 14:20 ESR 77 MM/HOUR (0-20) H 03/20/20 14:20 Sodium 137 mmol/L (136-145) 03/21/20 05:40 Corrected Sodium 137 mmol/L (136-145) 03/21/20 05:40 Potassium 2.4 mmol/L (3.5-5.1) L* 03/21/20 05:40 Chloride 100 mmol/L (98-107) 03/21/20 05:40 Carbon Dioxide 31.2 mmol/L (21-32) 03/21/20 05:40 BUN 5 mg/dL (7-18) L 03/21/20 05:40 Creatinine 0.86 mg/dL (0.55-1.02) 03/21/20 05:40 Est GFR (MDRD) Af Amer > 60 (>60) 03/21/20 05:40 Est GFR (MDRD) Non-Af > 60 (>60) 03/21/20 05:40 Glucose 117 mg/dL (65-99) H 03/21/20 05:40 Calcium 7.7 mg/dL (8.5-10.1) L 03/21/20 05:40 Corrected Calcium 9.5 mg/dL (8.5-10.1) 03/21/20 05:40 Magnesium 2.3 mg/dL (1.7-2.9) 03/21/20 05:40 Total Bilirubin 0.40 mg/dL (0.2-1.0) 03/21/20 05:40 AST 32 Units/L (15-37) 03/21/20 05:40 ALT 24 Units/L (12-78) 03/21/20 05:40 Alkaline Phosphatase 46 Units/L (46-116) 03/21/20 05:40 Total Protein 5.6 g/dL (6.4-8.2) L 03/21/20 05:40 Albumin 1.7 g/dL (3.4-5.0) L 03/21/20 05:40 Globulin 3.9 g/dL (2.5-4.5) 03/21/20 05:40 Albumin/Globulin Ratio 0.4 Ratio (1.1-2.1) L 03/21/20 05:40 Specimen Type Clean catch urine 03/20/20 19:25 Urine Color Yellow (YELLOW) 03/20/20 19:25 Urine Appearance Clear (CLEAR) 03/20/20 19:25 Urine pH 7.0 (5.0 - 8.0) 03/20/20 19:25 Ur Specific [place] 1.010 (1.000-1.030) 03/20/20 19:25 Urine Protein Negative (NEGATIVE) 03/20/20 19:25 Urine Glucose (UA) Negative (NEGATIVE) 03/20/20 19: Urine Ketones Negative (NEGATIVE) 03/20/20 19:25 Urine Occult Blood 1+ (NEGATIVE) 03/20/20 19: Urine Nitrite Negative (NEGATIVE) 03/20/20 19: Urine Bilirubin Negative (NEGATIVE) 03/20/20 19: Urine Urobilinogen Normal (NORMAL) 03/20/20 19:25 Ur Leukocyte Esterase 1+ (NEGATIVE) 03/20/20 19: Urine RBC 3-5 /HPF (0-3) A 03/20/20 19:25 Urine WBC 3-5 /HPF (0-5) 03/20/20 19:25 Ur Squamous Epith Cells Moderate /HPF (NEGATIVE) 03/20/20 19:25 Urine Bacteria Trace /HPF (NEGATIVE) 03/20/20 19:25 Ur Culture Indicated? No/not indicated 03/20/20 19:25 Stl C. diff Tox B Gene Negative (NEGATIVE) 03/20/20 17:24 Stl C. diff 027-NAP1-BI Negative (NEGATIVE) 03/20/20 17:24 - Assessment and Plan 1: acute colitis possible IBD . hypokalemia and hypo Albuminemia . mild anemia . cholelithiasis . to add steroids. keep NPO .Abdominal /pelvic CT .DVT prophylaxis
[2020-03-21 09:36] VITALS: BMI 48.5
[2020-03-21] MEDS: SOLU-Medrol 40 MG VIAL IVP SCH ×3 (09:46→21:08)
[2020-03-21] MEDS: POTASSIUM CHL 60 MEQ/NS 0.45% 500 ML IV PRN (11:21)
--- NOTE | 2020-03-21 12:44 | CT ---
HISTORYRight-sided ABD PAIN, N/V/D, colitisSTUDYCT abdomen and pelvis with IV contrastCOMPARISONCT 02/17/2020TECHNIQUEMultiple axial images of the abdomen and pelvis were obtained from the lung bases to the pubic symphysis after the administration of IV contrast. Dose reduction techniques including Automated Exposure Control (AEC) and adjustment of mA and kV were utilized.FINDINGSThe visualized portions of the lung bases suggest mild atelectasis.There is fatty infiltration of the liver and hepatomegaly.Spleen is normal in size.Cholelithiasis is seen without evidence of cholecystitis. No biliary ductal dilation.No pancreatic abnormality is seen.The adrenal glands appear normal.Tiny cyst is seen in the superior pole of the left kidney, unchanged. No nephrolithiasis or hydronephrosis is seen bilaterally. Phleboliths are seen in the pelvis. Ureters and bladder appear normal.Colitis changes are suspected in the proximal sigmoid colon, descending colon, transverse colon, and distal half of the ascending colon. Extent of plaque has worsened since prior study. No enteritis is seen. No evidence of bowel obstruction. Normal appendix is seen.Right ovarian cyst measures 3.5 cm, similar to prior study.Abdominal aorta is normal in size. Minimal atherosclerotic calcifications are seen in the abdominal aorta. No stenoses are seen in the SMA. There appears to be normal enhancement of distal SMA branches. Normal RM enhancement is seen.No suspicious lymphadenopathy.Trace free pelvic fluid may be physiologic.No acute bony abnormality is seen.IMPRESSIONWorsening colitis changes are seen. Findings are probably due to infectious colitis.Cholelithiasis is seen without evidence of cholecystitis.Electronically signed by: Cain Almaraz (Mar 21, 2020 12:43:14)
[2020-03-21] MEDS: CIPRO IV 400 MG PREMIX* 400 MG/200 ML IV.SOLN. IV SCH ×2 (14:30→20:16)
[2020-03-22] MEDS: K-RIDER 10 MEQ/NS 100 ML 10 MEQ/100 ML BAG IV PRN ×2 (00:43→06:26)
[2020-03-22] MEDS: ZOFRAN INJ 4 MG VIAL IVP PRN (04:20)
[2020-03-22] MEDS: DILAUDID INJ IVP PRN ×3 (04:20→22:03)
[2020-03-22] MEDS: FLAGYL IV PREMIX 500 MG BAG 500 MG/100 ML BAG IV SCH ×3 (05:09→21:00)
[2020-03-22] MEDS: SOLU-Medrol 40 MG VIAL IVP SCH ×3 (05:09→21:00)
[2020-03-22 06:15] LABS: BASOPHILS % (AUTO) 0.2 % (0.2-1.0); HEMATOCRIT 32.1 % (36.0-47.0); HEMOGLOBIN 10.5 g/dL (12.0-16.0); LYMPHOCYTES # (AUTO) 0.5 X10^3/uL (1.3-2.9); LYMPHOCYTES % (AUTO) 16.4 % (21.0-51.0); MEAN CORPUSCULAR HEMOGLOBIN 28.8 pg (27.0-34.0); MEAN CORPUSCULAR HGB CONC 32.6 g/dL (33.0-35.0); MEAN CORPUSCULAR VOLUME 88.3 fL (80.0-100.0); MEAN PLATELET VOLUME 9.2 fL (7.4-11.0); MONOCYTES # (AUTO) 0.2 x10^3/uL (0.3-0.8); MONOCYTES % (AUTO) 7.5 % (0.0-13.0); NEUTROPHILS # (AUTO) 2.1 x10^3/uL (2.2-4.8); NEUTROPHILS % (AUTO) 75.9 % (42.0-75.0); PLATELET COUNT 303 X10^3/uL (150.0-450.0); RED BLOOD COUNT 3.64 X10^6/uL (3.5-5.4); RED CELL DISTRIBUTION WIDTH 14.3 % (11.6-16.5); WHITE BLOOD COUNT 2.8 X10^3/uL (3.6-10.0)
[2020-03-22] MEDS: D5 1/2 NS + KCL 20 MEQ/L 1,000 ML IV SCH ×3 (06:16→23:11)
[2020-03-22 06:19] LABS: ALANINE AMINOTRANSFERASE 21 Units/L (12-78); ALBUMIN 1.6 g/dL (3.4-5.0); ALKALINE PHOSPHATASE 45 Units/L (46-116); ASPARTATE AMINO TRANSFERASE 17 Units/L (15-37); BLOOD UREA NITROGEN 3 mg/dL (7-18); CALCIUM 7.8 mg/dL (8.5-10.1); CARBON DIOXIDE 29.4 mmol/L (21-32); CHLORIDE 99 mmol/L (98-107); COR CA(FOR HYPOALB) 9.7 mg/dL (8.5-10.1); COR NA(FOR HYPERGLY) 136 mmol/L (136-145); CREATININE 0.62 mg/dL (0.55-1.02); MAGNESIUM 1.9 mg/dL (1.7-2.9); SODIUM 134 mmol/L (136-145); TOTAL PROTEIN 5.6 g/dL (6.4-8.2); eGFR NON BLACK RACES > 60 (>60)
[2020-03-22] MEDS: CIPRO IV 400 MG PREMIX* 400 MG/200 ML IV.SOLN. IV SCH ×2 (08:45→20:54)
[2020-03-22] MEDS: PROTONIX INJ 40 MG VIAL IVP SCH ×2 (08:46→20:57)
[2020-03-22] MEDS ORDERED: LOVENOX INJ 40 MG SYR SC SCH (09:00)
[2020-03-22] MEDS ORDERED: ALBUMIN HUMAN 25%- 100 ML 100 ML IV ONE (09:06)
--- NOTE | 2020-03-22 09:31 | DR.CONSULT ---
CONSULT Consultation for Day of: Date: 03/21/20 Chief Complaint Chief Complaint: bloody diarrhea, abdominal pain Allergies Allergies Allergy/AdvReac Type Severity Reaction Status Date / Time No Known Drug Allergies Allergy Verified 03/14/20 08:09 History of Present Illness History of Present Illness: Ms. Posadas is a 49y/o female with a PMH of HTN who was seen in surgery clinic Dr. Abel for abdominal pain and diarrhea. Patient was admitted last month for similar symptoms and was found to have colitis on CT. She completed the antibiotics and reports her symptoms improved a little bit but she continued to have diffuse abdominal pain and was only able to eat soft foods. Her symptoms got worse in the last week including bloody diarrhea, epigastric and right sided abdominal pain and nausea. She was directly admitted from clinic. She has been NPO, started on IV fluids and Flagyl. Her potassium has been low which is being replaced. CTAP showed diffuse colitis and cholelithiasis. C diff and campy (-). Past Medical History Past Medical History: Arthritis and Hypertension Past Surgical History Surgical History: and Ortho Surgery Family History Family Medical History: Cancer and Hypertension Social History Does patient currently use any type of tobacco product: No Have you used tobacco products in the last 12 months: No (quit 15 years ago) Type of Tobacco Use: None How many years tobacco product used: 10 Does any household member use tobacco: No Alcohol Use: None Drug Use: None Medications Home Medications: No Known Drug Allergies Allergy (Verified 03/14/20 08:09) CONTINUE taking the following medications dicyclomine 10 mg PO BID 03/20/20 [History] meloxicam 15 mg PO DAILY 03/20/20 [History] prednisone 10 mg PO BID 03/20/20 [History] Review of Systems Constitutional: Weakness Eyes: denies No Symptoms Reported ENT: No Symptoms Reported Respiratory: No Symptoms Reported Cardiovascular: No Symptoms Reported Gastrointestinal: Nausea, Vomiting, Abdominal Pain, Diarrhea and Hematochezia Genitourinary: No Symptoms Reported Musculoskeletal: No Symptoms Reported Skin: No Symptoms Reported Neurological: No Symptoms Reported Physical Exam Vital Signs: Temperature 97.7 F Pulse Rate [Right Brachial] 69 Respiratory Rate 18 Blood Pressure [Right Arm] 126/64 Blood Pressure [Left Arm] 145/65 Blood Pressure 125/72 O2 Sat by Pulse Oximetry 98 Oriented: Normal Eyes: Normal Ear: Normal Nose: Normal Respiratory: Clear Throughout Cardiovascular: Normal Auscultation: Bowel Sounds: Increased Tenderness: Diffuse, RUQ, RLQ, Epigastric, Periumbilical and Moderate Skin: Normal Musculoskeletal: Normal Psychiatric: Normal Mood Description: Calm Affect: Normal Speech Pattern: Clear and Appropriate Plan Plan: Will add Cipro for Gram negative coverage, continue IVF, K repalced as per protocol, keep NPO tonight and eval in the AM. Continue steroids. Monitor AM labs. Follow surgery recommendations.
[2020-03-22] MEDS ORDERED: NULYTELY or GO-LYTELY PO SCH (10:00)
[2020-03-22] MEDS: K-DUR TAB 20 MEQ PO SCH ×2 (10:44→20:58)
[2020-03-22] MEDS: POTASSIUM CHL 60 MEQ/NS 0.45% 500 ML IV PRN (11:15)
--- NOTE | 2020-03-22 13:26 | PCM.PROG ---
Progress Note Progress Note for Day of Date of Exam: 03/22/20 Subjective Subjective: Patient seen at bedside, reports feeling better. She states she has had crampy abdominal pain since 3 am. It is not as severe as it was when she came in. She also had some nausea, tolerating clears well. She reports diarrhea as slowed down, no blood and starting to form. Denies fever or chills. Labs: Hgb 10.5 K: 3.0 Na: 134 M.9 Plan: continue clears for now, scheduled for colonoscopy tomorrow, NPO at midnight. Continue IVF, steroids and antibiotics. Replace K, will schedule 20 mE Q BID along with as per protocol. Monitor Am labs. Past Medical Family Social History Past Med/Fam/Surg Hx: No changes since H&P Allergies: Allergies No Known Drug Allergies Allergy (Verified 03/14/20 08:09) Review of Systems ROS: No change since H&P Vital Signs and I&O's Vital Signs: Temperature 98.1 F Pulse Rate [Right Brachial] 72 Respiratory Rate 20 Blood Pressure [Right Arm] 120/62 Blood Pressure [Left Arm] 145/65 Blood Pressure 125/72 O2 Sat by Pulse Oximetry 90 Intake and Output: Intake & Output 03/19/20 03/20/20 03/21/20 03/22/20 23:59 23:59 23:59 23:59 Intake Total 1400 / 1400 900 / 900 Balance 1400 / 1400 900 / 900 Physical Exam Oriented: Normal Eyes: Normal Ear: Normal Nose: Normal Throat: Normal Respiratory: Normal Cardiovascular: Normal Auscultation: Bowel Sounds: Normal Tenderness: Diffuse, Epigastric, Periumbilical and Mild Skin: Normal Musculoskeletal: Normal Psychiatric: Normal Mood Description: Calm Affect: Normal Speech Pattern: Clear and Appropriate Laboratory and Diagnostics Result Diagrams: 03/22/20 05:38 03/22/20 05:38 Labs: 03/20/20 23:53 Stool Stool Culture - Preliminary 03/20/20 23:53 Stool - Final Laboratory WBC 2.8 X10^3/uL (3.6-10.0) L 03/22/20 05:38 RBC 3.64 X10^6/uL (3.5-5.4) 03/22/20 05:38 Hgb 10.5 g/dL (12.0-16.0) L 03/22/20 05:38 Hct 32.1 % (36.0-47.0) L 03/22/20 05:38 MCV 88.3 fL (80.0-100.0) 03/22/20 05:38 MCH 28.8 pg (27.0-34.0) 03/22/20 05:38 MCHC 32.6 g/dL (33.0-35.0) L 03/22/20 05:38 RDW 14.3 % (11.6-16.5) 03/22/20 05:38 Plt Count 303 X10^3/uL (150.0-450.0) 03/22/20 05:38 Plt Count Comment Adequate (ADEQUATE) 03/20/20 14:20 MPV 9.2 fL (7.4-11.0) 03/22/20 05:38 Neut % (Auto) 75.9 % (42.0-75.0) H 03/22/20 05:38 Lymph % (Auto) 16.4 % (21.0-51.0) L 03/22/20 05:38 [place] % (Auto) 7.5 % (0.0-13.0) 03/22/20 05:38 Eos % (Auto) 0.0 % (0.9-2.9) L 03/22/20 05:38 Baso % (Auto) 0.2 % (0.2-1.0) 03/22/20 05:38 Neut # (Auto) 2.1 x10^3/uL (2.2-4.8) L 03/22/20 05:38 Lymph # (Auto) 0.5 X10^3/uL (1.3-2.9) L 03/22/20 05:38 [place] # (Auto) 0.2 x10^3/uL (0.3-0.8) L 03/22/20 05:38 Eos # (Auto) 0.0 x10^3/uL (0.0-0.2) 03/22/20 05:38 Baso # (Auto) 0.0 X10^3/uL (0.0-0.1) 03/22/20 05:38 Absolute Nucleated RBC 0.2 /100WBC 03/22/20 05:38 Total Counted 100 03/20/20 14:20 Neutrophils % (Manual) 39 % (39-76) 03/20/20 14:20 Band Neutrophils % 7 % (0-10) 03/20/20 14:20 Lymphocytes % (Manual) 49 % (13-43) H 03/20/20 14:20 Monocytes % (Manual) 5 % (4-9) 03/20/20 14:20 Plt Morphology Comment Normal (NORMAL) 03/20/20 14:20 RBC Morphology Normal (NORMAL) 03/20/20 14:20 ESR 77 MM/HOUR (0-20) H 03/20/20 14:20 Sodium 134 mmol/L (136-145) L 03/22/20 05:38 Corrected Sodium 136 mmol/L (136-145) 03/22/20 05:38 Potassium 3.0 mmol/L (3.5-5.1) L* 03/22/20 05:38 Chloride 99 mmol/L (98-107) 03/22/20 05:38 Carbon Dioxide 29.4 mmol/L (21-32) 03/22/20 05:38 BUN 3 mg/dL (7-18) L 03/22/20 05:38 Creatinine 0.62 mg/dL (0.55-1.02) 03/22/20 05:38 Est GFR (MDRD) Af Amer > 60 (>60) 03/22/20 05:38 Est GFR (MDRD) Non-Af > 60 (>60) 03/22/20 05:38 Glucose 186 mg/dL (65-99) H 03/22/20 05:38 Calcium 7.8 mg/dL (8.5-10.1) L 03/22/20 05:38 Corrected Calcium 9.7 mg/dL (8.5-10.1) 03/22/20 05:38 Magnesium 1.9 mg/dL (1.7-2.9) 03/22/20 05:38 Total Bilirubin 0.20 mg/dL (0.2-1.0) 03/22/20 05:38 AST 17 Units/L (15-37) 03/22/20 05:38 ALT 21 Units/L (12-78) 03/22/20 05:38 Alkaline Phosphatase 45 Units/L (46-116) L 03/22/20 05:38 Total Protein 5.6 g/dL (6.4-8.2) L 03/22/20 05:38 Albumin 1.6 g/dL (3.4-5.0) L 03/22/20 05:38 Globulin 4.0 g/dL (2.5-4.5) 03/22/20 05:38 Albumin/Globulin Ratio 0.4 Ratio (1.1-2.1) L 03/22/20 05:38 Specimen Type Clean catch urine 03/20/20 19:25 Urine Color Yellow (YELLOW) 03/20/20 19:25 Urine Appearance Clear (CLEAR) 03/20/20 19:25 Urine pH 7.0 (5.0 - 8.0) 03/20/20 19:25 Ur Specific [place] 1.010 (1.000-1.030) 03/20/20 19:25 Urine Protein Negative (NEGATIVE) 03/20/20 19:25 Urine Glucose (UA) Negative (NEGATIVE) 03/20/20 19: Urine Ketones Negative (NEGATIVE) 03/20/20 19:25 Urine Occult Blood 1+ (NEGATIVE) 03/20/20 19:25 Urine Nitrite Negative (NEGATIVE) 03/20/20 19:25 Urine Bilirubin Negative (NEGATIVE) 03/20/20 19:25 Urine Urobilinogen Normal (NORMAL) 03/20/20 19:25 Ur Leukocyte Esterase 1+ (NEGATIVE) 03/20/20 19:25 Urine RBC 3-5 /HPF (0-3) A 03/20/20 19:25 Urine WBC 3-5 /HPF (0-5) 03/20/20 19:25 Ur Squamous Epith Cells Moderate /HPF (NEGATIVE) 03/20/20 19:25 Urine Bacteria Trace /HPF (NEGATIVE) 03/20/20 19:25 Ur Culture Indicated? No/not indicated 03/20/20 19:25 Stl C. diff Tox B Gene Negative (NEGATIVE) 03/20/20 17:24 Stl C. diff 027-NAP1-BI Negative (NEGATIVE) 03/20/20 17:24 Plan (1) Rectal bleeding: Status: Acute (2) Colitis: Status: Acute (3) Dehydration: Status: Acute (4) Diarrhea: Status: Acute Qualifiers: Diarrhea type: unspecified type Qualified Code(s): R19.7 - Diarrhea, unspecified
[2020-03-23] MEDS: DILAUDID INJ IVP PRN ×2 (01:15→08:53)
[2020-03-23] MEDS: FLAGYL IV PREMIX 500 MG BAG 500 MG/100 ML BAG IV SCH ×3 (05:07→21:33)
[2020-03-23] MEDS: SOLU-Medrol 40 MG VIAL IVP SCH ×3 (05:07→21:33)
[2020-03-23] MEDS: D5 1/2 NS + KCL 20 MEQ/L 1,000 ML IV SCH (06:04)
[2020-03-23 06:24] LABS: BASOPHILS % (AUTO) 0.3 % (0.2-1.0); HEMATOCRIT 34.3 % (36.0-47.0); LYMPHOCYTES # (AUTO) 0.7 X10^3/uL (1.3-2.9); LYMPHOCYTES % (AUTO) 16.8 % (21.0-51.0); MEAN CORPUSCULAR HEMOGLOBIN 28.7 pg (27.0-34.0); MEAN CORPUSCULAR HGB CONC 32.2 g/dL (33.0-35.0); MEAN CORPUSCULAR VOLUME 89.3 fL (80.0-100.0); MEAN PLATELET VOLUME 9.2 fL (7.4-11.0); MONOCYTES # (AUTO) 0.3 x10^3/uL (0.3-0.8); MONOCYTES % (AUTO) 6.9 % (0.0-13.0); NEUTROPHILS # (AUTO) 3.2 x10^3/uL (2.2-4.8); PLATELET COUNT 327 X10^3/uL (150.0-450.0); RED BLOOD COUNT 3.84 X10^6/uL (3.5-5.4); WHITE BLOOD COUNT 4.2 X10^3/uL (3.6-10.0)
[2020-03-23 06:39] LABS: ALANINE AMINOTRANSFERASE 32 Units/L (12-78); ALBUMIN 2.2 g/dL (3.4-5.0); ALKALINE PHOSPHATASE 51 Units/L (46-116); ASPARTATE AMINO TRANSFERASE 31 Units/L (15-37); BLOOD UREA NITROGEN 7 mg/dL (7-18); CALCIUM 8.2 mg/dL (8.5-10.1); CARBON DIOXIDE 27.3 mmol/L (21-32); CHLORIDE 101 mmol/L (98-107); COR CA(FOR HYPOALB) 9.6 mg/dL (8.5-10.1); COR NA(FOR HYPERGLY) 136 mmol/L (136-145); CREATININE 0.73 mg/dL (0.55-1.02); SODIUM 134 mmol/L (136-145); TOTAL PROTEIN 6.1 g/dL (6.4-8.2); eGFR NON BLACK RACES > 60 (>60)
[2020-03-23 06:52] LABS: BAND NEUTROPHILS % 6 % (0-10); PLATELET MORPHOLOGY COMMENT NORMAL (NORMAL)
[2020-03-23] MEDS ORDERED: NS 1000 ML 1,000 ML ONE (07:27)
[2020-03-23] MEDS ORDERED: DIPRIVAN VIAL 20 ML ONE ×2 (07:30→07:37)
--- NOTE | 2020-03-23 08:14 | PCM.PROG ---
Progress Note Progress Note for Day of Date of Exam: 03/23/20 Subjective Subjective: Patient seen at bedside, just got back from colonoscopy. She was found to have severe ulcerative colitis, biopsies done and stool sent for C diff. Patient states she has crampy abdominal pain all over, was worse last night after the prep. She will be on full liquid diet today. Labs: K: 3.5 Hgb: 11 Na:134 Glu:170 Plan: continue cipro and flagyl, continue steroids, follow surgery recomme ndations, monitor and replace K as per protocol. Will switch fluids to NS with KCl. Past Medical Family Social History Past Med/Fam/Surg Hx: No changes since H&P Allergies: Allergies No Known Drug Allergies Allergy (Verified 03/14/20 08:09) Review of Systems ROS: No change since H&P Vital Signs and I&O's Vital Signs: Temperature 97.9 F Pulse Rate [Right Brachial] 54 Pulse Rate 59 Respiratory Rate 20 Blood Pressure [Right Arm] 134/61 Blood Pressure [Left Arm] 145/65 Blood Pressure 127/71 O2 Sat by Pulse Oximetry 94 Intake and Output: Intake & Output 03/20/20 03/21/20 03/22/20 03/23/20 23:59 23:59 23:59 23:59 Intake Total 1400 / 1400 4640 / 4640 1475 / 1475 Balance 1400 / 1400 4640 / 4640 1475 / 1475 Physical Exam Oriented: Normal Eyes: Normal Ear: Normal Nose: Normal Throat: Normal Respiratory: Normal Cardiovascular: Normal Auscultation: Bowel Sounds: Decreased Tenderness: Diffuse, Epigastric, Periumbilical and Mild Skin: Normal Musculoskeletal: Normal Psychiatric: Normal Mood Description: Calm Affect: Normal Speech Pattern: Clear and Appropriate Laboratory and Diagnostics Result Diagrams: 03/23/20 05:46 03/23/20 05:46 Labs: 03/20/20 23:53 Stool Stool Culture - Preliminary 03/20/20 23:53 Stool - Final Laboratory WBC 4.2 X10^3/uL (3.6-10.0) 03/23/20 05:46 RBC 3.84 X10^6/uL (3.5-5.4) 03/23/20 05:46 Hgb 11.0 g/dL (12.0-16.0) L 03/23/20 05:46 Hct 34.3 % (36.0-47.0) L 03/23/20 05:46 MCV 89.3 fL (80.0-100.0) 03/23/20 05:46 MCH 28.7 pg (27.0-34.0) 03/23/20 05:46 MCHC 32.2 g/dL (33.0-35.0) L 03/23/20 05:46 RDW 14.0 % (11.6-16.5) 03/23/20 05:46 Plt Count 327 X10^3/uL (150.0-450.0) 03/23/20 05:46 Plt Count Comment Adequate (ADEQUATE) 03/23/20 05:46 MPV 9.2 fL (7.4-11.0) 03/23/20 05:46 Neut % (Auto) 76.0 % (42.0-75.0) H 03/23/20 05:46 Lymph % (Auto) 16.8 % (21.0-51.0) L 03/23/20 05:46 [place] % (Auto) 6.9 % (0.0-13.0) 03/23/20 05:46 Eos % (Auto) 0.0 % (0.9-2.9) L 03/23/20 05:46 Baso % (Auto) 0.3 % (0.2-1.0) 03/23/20 05:46 Neut # (Auto) 3.2 x10^3/uL (2.2-4.8) 03/23/20 05:46 Lymph # (Auto) 0.7 X10^3/uL (1.3-2.9) L 03/23/20 05:46 [place] # (Auto) 0.3 x10^3/uL (0.3-0.8) 03/23/20 05:46 Eos # (Auto) 0.0 x10^3/uL (0.0-0.2) 03/23/20 05:46 Baso # (Auto) 0.0 X10^3/uL (0.0-0.1) 03/23/20 05:46 Absolute Nucleated RBC 0.2 /100WBC 03/23/20 05:46 Total Counted 100 03/23/20 05:46 Neutrophils % (Manual) 64 % (39-76) 03/23/20 05:46 Band Neutrophils % 6 % (0-10) 03/23/20 05:46 Lymphocytes % (Manual) 22 % (13-43) 03/23/20 05:46 Monocytes % (Manual) 8 % (4-9) 03/23/20 05:46 Plt Morphology Comment Normal (NORMAL) 03/23/20 05:46 RBC Morphology Normal (NORMAL) 03/23/20 05:46 ESR 77 MM/HOUR (0-20) H 03/20/20 14:20 Sodium 134 mmol/L (136-145) L 03/23/20 05:46 Corrected Sodium 136 mmol/L (136-145) 03/23/20 05:46 Potassium 3.5 mmol/L (3.5-5.1) 03/23/20 05:46 Chloride 101 mmol/L (98-107) 03/23/20 05:46 Carbon Dioxide 27.3 mmol/L (21-32) 03/23/20 05:46 BUN 7 mg/dL (7-18) 03/23/20 05:46 Creatinine 0.73 mg/dL (0.55-1.02) 03/23/20 05:46 Est GFR (MDRD) Af Amer > 60 (>60) 03/23/20 05:46 Est GFR (MDRD) Non-Af > 60 (>60) 03/23/20 05:46 Glucose 170 mg/dL (65-99) H 03/23/20 05:46 Calcium 8.2 mg/dL (8.5-10.1) L 03/23/20 05:46 Corrected Calcium 9.6 mg/dL (8.5-10.1) 03/23/20 05:46 Magnesium 1.9 mg/dL (1.7-2.9) 03/22/20 05:38 Total Bilirubin 0.20 mg/dL (0.2-1.0) 03/23/20 05:46 AST 31 Units/L (15-37) 03/23/20 05:46 ALT 32 Units/L (12-78) 03/23/20 05:46 Alkaline Phosphatase 51 Units/L (46-116) 03/23/20 05:46 Total Protein 6.1 g/dL (6.4-8.2) L 03/23/20 05:46 Albumin 2.2 g/dL (3.4-5.0) L 03/23/20 05:46 Globulin 3.9 g/dL (2.5-4.5) 03/23/20 05:46 Albumin/Globulin Ratio 0.6 Ratio (1.1-2.1) L 03/23/20 05:46 Specimen Type Clean catch urine 03/20/20 19:25 Urine Color Yellow (YELLOW) 03/20/20 19:25 Urine Appearance Clear (CLEAR) 03/20/20 19:25 Urine pH 7.0 (5.0 - 8.0) 03/20/20 19:25 Ur Specific [place] 1.010 (1.000-1.030) 03/20/20 19:25 Urine Protein Negative (NEGATIVE) 03/20/20 19:25 Urine Glucose (UA) Negative (NEGATIVE) 03/20/20 19:25 Urine Ketones Negative (NEGATIVE) 03/20/20 19:25 Urine Occult Blood 1+ (NEGATIVE) 03/20/20 19:25 Urine Nitrite Negative (NEGATIVE) 03/20/20 19:25 Urine Bilirubin Negative (NEGATIVE) 03/20/20 19:25 Urine Urobilinogen Normal (NORMAL) 03/20/20 19:25 Ur Leukocyte Esterase 1+ (NEGATIVE) 03/20/20 19:25 Urine RBC 3-5 /HPF (0-3) A 03/20/20 19:25 Urine WBC 3-5 /HPF (0-5) 03/20/20 19:25 Ur Squamous Epith Cells Moderate /HPF (NEGATIVE) 03/20/20 19:25 Urine Bacteria Trace /HPF (NEGATIVE) 03/20/20 19:25 Ur Culture Indicated? No/not indicated 03/20/20 19:25 Stl C. diff Tox B Gene Negative (NEGATIVE) 03/20/20 17:24 Stl C. diff 027-NAP1-BI Negative (NEGATIVE) 03/20/20 17:24 Tissue Pathology To follow 03/23/20 07:41 Plan (1) Ulcerative colitis: Status: Acute Qualifiers: Ulcerative colitis location: ulcerative pancolitis Digestive disease complication type: unspecified complication Qualified Code(s): K51.019 - Ulcerative (chronic) pancolitis with unspecified complications (2) Rectal bleeding: Status: Acute (3) Dehydration: Status: Acute (4) Diarrhea: Status: Acute Qualifiers: Diarrhea type: unspecified type Qualified Code(s): R19.7 - Diarrhea, unspecified (5) Hypokalemia: Status: Acute (6) Hypomagnesemia: Status: Acute
[2020-03-23] MEDS: PROTONIX INJ 40 MG VIAL IVP SCH ×2 (08:51→20:28)
[2020-03-23] MEDS: CIPRO IV 400 MG PREMIX* 400 MG/200 ML IV.SOLN. IV SCH ×2 (08:51→20:28)
[2020-03-23] MEDS: K-DUR TAB 20 MEQ PO SCH (08:52)
[2020-03-23] MEDS: NS + KCL 20 MEQ/L 1,000 ML IV SCH ×2 (08:59→17:38)
--- NOTE | 2020-03-23 10:18 | DR.PROGNOT ---
Hospital Progress Notes - Progress Note for Day of: Progress Note Date: 03/23/20 - Chief Complaint Chief Complaint: still c/o crampy mid abdominal pain . having loose BM , no bleeding today . electrolyte immbalance was corrected . colonoscopy showed severe proximal colitis . - Past Medical Family Social History Past Med/Fam/Surg Hx: No changes since H&P Allergies: Allergies No Known Drug Allergies Allergy (Verified 03/14/20 08:09) - Review Of Systems ROS: No change since H&P - Vital Signs Vital Signs: Temperature 97.9 F Pulse Rate [Right Brachial] 54 Pulse Rate 59 Respiratory Rate 18 Blood Pressure [Right Arm] 134/61 Blood Pressure [Left Arm] 145/65 Blood Pressure 127/71 O2 Sat by Pulse Oximetry 94 - Physical Exam Oriented: Normal Eyes: Normal Ear: Normal Nose: Normal Throat: Normal Respiratory: Normal Cardiovascular: Normal GI:Auscultation: Decreased GI:Palpation: Normal GI: Tenderness: Diffuse, Epigastric, Mild, Periumbilical Skin: Normal Musculoskeletal: Normal Psychiatric: Normal Mood Description: Calm Affect: Normal Speech Pattern: Clear, Appropriate - Laboratory and Diagnostics Result Diagrams: 03/23/20 05:46 03/23/20 05:46 Labs: 03/20/20 23:53 Stool Stool Culture - Final 03/20/20 23:53 Stool - Final Laboratory WBC 4.2 X10^3/uL (3.6-10.0) 03/23/20 05:46 RBC 3.84 X10^6/uL (3.5-5.4) 03/23/20 05:46 Hgb 11.0 g/dL (12.0-16.0) L 03/23/20 05:46 Hct 34.3 % (36.0-47.0) L 03/23/20 05:46 MCV 89.3 fL (80.0-100.0) 03/23/20 05:46 MCH 28.7 pg (27.0-34.0) 03/23/20 05:46 MCHC 32.2 g/dL (33.0-35.0) L 03/23/20 05:46 RDW 14.0 % (11.6-16.5) 03/23/20 05:46 Plt Count 327 X10^3/uL (150.0-450.0) 03/23/20 05:46 Plt Count Comment Adequate (ADEQUATE) 03/23/20 05:46 MPV 9.2 fL (7.4-11.0) 03/23/20 05:46 Neut % (Auto) 76.0 % (42.0-75.0) H 03/23/20 05:46 Lymph % (Auto) 16.8 % (21.0-51.0) L 03/23/20 05:46 [place] % (Auto) 6.9 % (0.0-13.0) 03/23/20 05:46 Eos % (Auto) 0.0 % (0.9-2.9) L 03/23/20 05:46 Baso % (Auto) 0.3 % (0.2-1.0) 03/23/20 05:46 Neut # (Auto) 3.2 x10^3/uL (2.2-4.8) 03/23/20 05:46 Lymph # (Auto) 0.7 X10^3/uL (1.3-2.9) L 03/23/20 05:46 [place] # (Auto) 0.3 x10^3/uL (0.3-0.8) 03/23/20 05:46 Eos # (Auto) 0.0 x10^3/uL (0.0-0.2) 03/23/20 05:46 Baso # (Auto) 0.0 X10^3/uL (0.0-0.1) 03/23/20 05:46 Absolute Nucleated RBC 0.2 /100WBC 03/23/20 05:46 Total Counted 100 03/23/20 05:46 Neutrophils % (Manual) 64 % (39-76) 03/23/20 05:46 Band Neutrophils % 6 % (0-10) 03/23/20 05:46 Lymphocytes % (Manual) 22 % (13-43) 03/23/20 05:46 Monocytes % (Manual) 8 % (4-9) 03/23/20 05:46 Plt Morphology Comment Normal (NORMAL) 03/23/20 05:46 RBC Morphology Normal (NORMAL) 03/23/20 05:46 ESR 77 MM/HOUR (0-20) H 03/20/20 14:20 Sodium 134 mmol/L (136-145) L 03/23/20 05:46 Corrected Sodium 136 mmol/L (136-145) 03/23/20 05:46 Potassium 3.5 mmol/L (3.5-5.1) 03/23/20 05:46 Chloride 101 mmol/L (98-107) 03/23/20 05:46 Carbon Dioxide 27.3 mmol/L (21-32) 03/23/20 05:46 BUN 7 mg/dL (7-18) 03/23/20 05:46 Creatinine 0.73 mg/dL (0.55-1.02) 03/23/20 05:46 Est GFR (MDRD) Af Amer > 60 (>60) 03/23/20 05:46 Est GFR (MDRD) Non-Af > 60 (>60) 03/23/20 05:46 Glucose 170 mg/dL (65-99) H 03/23/20 05:46 Calcium 8.2 mg/dL (8.5-10.1) L 03/23/20 05:46 Corrected Calcium 9.6 mg/dL (8.5-10.1) 03/23/20 05:46 Magnesium 1.9 mg/dL (1.7-2.9) 03/22/20 05:38 Total Bilirubin 0.20 mg/dL (0.2-1.0) 03/23/20 05:46 AST 31 Units/L (15-37) 03/23/20 05:46 ALT 32 Units/L (12-78) 03/23/20 05:46 Alkaline Phosphatase 51 Units/L (46-116) 03/23/20 05:46 Total Protein 6.1 g/dL (6.4-8.2) L 03/23/20 05:46 Albumin 2.2 g/dL (3.4-5.0) L 03/23/20 05:46 Globulin 3.9 g/dL (2.5-4.5) 03/23/20 05:46 Albumin/Globulin Ratio 0.6 Ratio (1.1-2.1) L 03/23/20 05:46 Specimen Type Clean catch urine 03/20/20 19:25 Urine Color Yellow (YELLOW) 03/20/20 19:25 Urine Appearance Clear (CLEAR) 03/20/20 19:25 Urine pH 7.0 (5.0 - 8.0) 03/20/20 19:25 Ur Specific [place] 1.010 (1.000-1.030) 03/20/20 19:25 Urine Protein Negative (NEGATIVE) 03/20/20 19:25 Urine Glucose (UA) Negative (NEGATIVE) 03/20/20 19:25 Urine Ketones Negative (NEGATIVE) 03/20/20 19:25 Urine Occult Blood 1+ (NEGATIVE) 03/20/20 19:25 Urine Nitrite Negative (NEGATIVE) 03/20/20 19:25 Urine Bilirubin Negative (NEGATIVE) 03/20/20 19:25 Urine Urobilinogen Normal (NORMAL) 03/20/20 19:25 Ur Leukocyte Esterase 1+ (NEGATIVE) 03/20/20 19:25 Urine RBC 3-5 /HPF (0-3) A 03/20/20 19:25 Urine WBC 3-5 /HPF (0-5) 03/20/20 19:25 Ur Squamous Epith Cells Moderate /HPF (NEGATIVE) 03/20/20 19:25 Urine Bacteria Trace /HPF (NEGATIVE) 03/20/20 19:25 Ur Culture Indicated? No/not indicated 03/20/20 19:25 Stl C. diff Tox B Gene Negative (NEGATIVE) 03/23/20 07:48 Stl C. diff 027-NAP1-BI Negative (NEGATIVE) 03/23/20 07:48 Tissue Pathology To follow 03/23/20 07:41 - Assessment and Plan 1: acute colitis possible IBD , pending pathology report. hypokalemia and hypo Albuminemia , corrected .. mild anemia . cholelithiasis . on IVF , ATB , IV steroids .pain control . on full liquid for now - Problem Patient Problems: Patient Problems Ulcerative colitis (Acute) K51.90 Hypomagnesemia (Acute) E83.42 Hypokalemia (Acute) E87.6 Abdominal pain (Acute) R10.9 Rectal bleeding (Acute) K62.5 Colitis (Acute) K52.9
[2020-03-24] MEDS: NS + KCL 20 MEQ/L 1,000 ML IV SCH ×3 (00:50→16:53)
[2020-03-24] MEDS: SOLU-Medrol 40 MG VIAL IVP SCH ×3 (06:11→21:41)
[2020-03-24] MEDS: FLAGYL IV PREMIX 500 MG BAG 500 MG/100 ML BAG IV SCH ×3 (06:11→21:41)
[2020-03-24] MEDS: ZOFRAN INJ 4 MG VIAL IVP PRN (06:12)
[2020-03-24] MEDS: DILAUDID INJ IVP PRN ×3 (06:23→21:40)
[2020-03-24 06:35] LABS: ALANINE AMINOTRANSFERASE 25 Units/L (12-78); ALBUMIN 1.9 g/dL (3.4-5.0); ALKALINE PHOSPHATASE 49 Units/L (46-116); ASPARTATE AMINO TRANSFERASE 26 Units/L (15-37); BLOOD UREA NITROGEN 9 mg/dL (7-18); CALCIUM 7.8 mg/dL (8.5-10.1); CARBON DIOXIDE 27.2 mmol/L (21-32); CHLORIDE 103 mmol/L (98-107); COR CA(FOR HYPOALB) 9.5 mg/dL (8.5-10.1); COR NA(FOR HYPERGLY) 136 mmol/L (136-145); CREATININE 0.68 mg/dL (0.55-1.02); SODIUM 135 mmol/L (136-145); TOTAL PROTEIN 5.3 g/dL (6.4-8.2); eGFR NON BLACK RACES > 60 (>60)
[2020-03-24 06:53] LABS: BASOPHILS % (AUTO) 0.3 % (0.2-1.0); HEMATOCRIT 32.7 % (36.0-47.0); HEMOGLOBIN 10.6 g/dL (12.0-16.0); LYMPHOCYTES # (AUTO) 0.8 X10^3/uL (1.3-2.9); LYMPHOCYTES % (AUTO) 13.4 % (21.0-51.0); MEAN CORPUSCULAR HGB CONC 32.5 g/dL (33.0-35.0); MEAN CORPUSCULAR VOLUME 89.1 fL (80.0-100.0); MONOCYTES # (AUTO) 0.3 x10^3/uL (0.3-0.8); MONOCYTES % (AUTO) 4.9 % (0.0-13.0); NEUTROPHILS # (AUTO) 4.6 x10^3/uL (2.2-4.8); NEUTROPHILS % (AUTO) 81.4 % (42.0-75.0); PLATELET COUNT 291 X10^3/uL (150.0-450.0); RED BLOOD COUNT 3.67 X10^6/uL (3.5-5.4); RED CELL DISTRIBUTION WIDTH 14.2 % (11.6-16.5); WHITE BLOOD COUNT 5.7 X10^3/uL (3.6-10.0)
[2020-03-24 06:59] LABS: BAND NEUTROPHILS % 5 % (0-10)
[2020-03-24 07:00] LABS: PLATELET MORPHOLOGY COMMENT NORMAL (NORMAL)
[2020-03-24] MEDS: PROTONIX INJ 40 MG VIAL IVP SCH ×2 (08:53→20:45)
[2020-03-24] MEDS: CIPRO IV 400 MG PREMIX* 400 MG/200 ML IV.SOLN. IV SCH ×2 (08:53→20:50)
[2020-03-24] MEDS ORDERED: ALBUMIN HUMAN 25%- 100 ML 100 ML IV ONE (10:45)
--- NOTE | 2020-03-24 10:45 | PCM.PROG ---
Progress Note - Progress Note for Day of Date of Exam: 03/24/20 - Subjective Subjective: IS BEING TREATED FOR ABDOMINAL PAIN, COLITIS, AND RECTAL BLEEDING. PERFORMED A COLONOSCOPY ON 03/23/20. IT REVEALED: Severe colitis involving the proximal colon. Inflammation is involving more of the right colon and to a lesser extent the sigmoid and rectum. TODAY, SHE IS ALERT AND ORIENTED, WALKING AROUND ROOM ON MORNING ROUNDS. SHE CONTINUES WITH COMPLAINTS OF MILD ABDOMINAL PAIN THIS MORNING. SHE CONTINUES TO REPORT LOOSE BOWEL MOVEMENTS. SHE IS ON A FULL LIQUID DIET AND TOLERATING WELL. HER VITALS THIS MORNING ARE: 99.1-76-20-96%-125/79. LABS WERE OBTAINED. ABNORMAL LAB VALUES INCLUDE THE FOLLOWING: HGB 10.6, HGB 32.7, SODIUM 135, GLUCOSE 156, CALCIUM 7.6, TOTAL PROTEIN 5.3, ALBUMIN 1.9. PATHOLOGY REPORT FROM [facility] IS PENDING. SHE IS CURRENTLY RECEIVING CIPRO 400MG IV Q12H, FLAGYL 500MG IV Q8H, NS WITH 20MEQ KCL AT 50 ML/HR, DOLU-MEDROL 80MG IV Q8H, DILAUDID 0.5MG IV Q3H PRN, AND PROTONIX 40MG IV BID. WE WILL CONTINUE WITH CURRENT PLAN OF CARE TODAY. OTHERWISE, WE PLAN TO FOLLOW UP WITH AM LABS AND CONTINUE TO MONITOR. - Past Medical Family Social History Past Med/Fam/Surg Hx: No changes since H&P Allergies: Allergies No Known Drug Allergies Allergy (Verified 03/14/20 08:09) - Review of Systems ROS: No change since H&P - Vital Signs and I&O's Vital Signs: Temperature 99.1 F Pulse Rate [Right Brachial] 76 Pulse Rate 59 Respiratory Rate 20 Blood Pressure [Right Arm] 125/79 Blood Pressure [Left Arm] 145/65 Blood Pressure 127/71 O2 Sat by Pulse Oximetry 96 Intake and Output: Intake & Output 03/21/20 03/22/20 03/23/20 03/24/20 11:59 11:59 11:59 11:59 Intake Total 2300 / 2300 5215 / 5215 2490 / 2490 Balance 2300 / 2300 5215 / 5215 2490 / 2490 - Physical Exam Oriented: Normal Eyes: Normal Ear: Normal Nose: Normal Throat: Normal Respiratory: Normal Cardiovascular: Normal Auscultation: Bowel Sounds: Decreased Tenderness: Diffuse, Epigastric, Mild, Periumbilical Skin: Normal Musculoskeletal: Normal Psychiatric: Normal Mood Description: Calm Affect: Normal Speech Pattern: Clear, Appropriate - Laboratory and Diagnostics Result Diagrams: 03/24/20 06:30 03/24/20 05:45 Labs: 03/20/20 23:53 Stool Stool Culture - Final 03/20/20 23:53 Stool - Final Laboratory WBC 5.7 X10^3/uL (3.6-10.0) 03/24/20 06:30 RBC 3.67 X10^6/uL (3.5-5.4) 03/24/20 06:30 Hgb 10.6 g/dL (12.0-16.0) L 03/24/20 06:30 Hct 32.7 % (36.0-47.0) L 03/24/20 06:30 MCV 89.1 fL (80.0-100.0) 03/24/20 06:30 MCH 29.0 pg (27.0-34.0) 03/24/20 06:30 MCHC 32.5 g/dL (33.0-35.0) L 03/24/20 06:30 RDW 14.2 % (11.6-16.5) 03/24/20 06:30 Plt Count 291 X10^3/uL (150.0-450.0) 03/24/20 06:30 Plt Count Comment Adequate (ADEQUATE) 03/24/20 06:30 MPV 10.0 fL (7.4-11.0) 03/24/20 06:30 Neut % (Auto) 81.4 % (42.0-75.0) H 03/24/20 06:30 Lymph % (Auto) 13.4 % (21.0-51.0) L 03/24/20 06:30 [place] % (Auto) 4.9 % (0.0-13.0) 03/24/20 06:30 Eos % (Auto) 0.0 % (0.9-2.9) L 03/24/20 06:30 Baso % (Auto) 0.3 % (0.2-1.0) 03/24/20 06:30 Neut # (Auto) 4.6 x10^3/uL (2.2-4.8) 03/24/20 06:30 Lymph # (Auto) 0.8 X10^3/uL (1.3-2.9) L 03/24/20 06:30 [place] # (Auto) 0.3 x10^3/uL (0.3-0.8) 03/24/20 06:30 Eos # (Auto) 0.0 x10^3/uL (0.0-0.2) 03/24/20 06:30 Baso # (Auto) 0.0 X10^3/uL (0.0-0.1) 03/24/20 06:30 Absolute Nucleated RBC 0.2 /100WBC 03/24/20 06:30 Total Counted 100 03/24/20 06:30 Neutrophils % (Manual) 77 % (39-76) H 03/24/20 06:30 Band Neutrophils % 5 % (0-10) 03/24/20 06:30 Lymphocytes % (Manual) 12 % (13-43) L 03/24/20 06:30 Monocytes % (Manual) 6 % (4-9) 03/24/20 06:30 Plt Morphology Comment Normal (NORMAL) 03/24/20 06:30 RBC Morphology Normal (NORMAL) 03/24/20 06:30 ESR 77 MM/HOUR (0-20) H 03/20/20 14:20 Sodium 135 mmol/L (136-145) L 03/24/20 05:45 Corrected Sodium 136 mmol/L (136-145) 03/24/20 05:45 Potassium 4.1 mmol/L (3.5-5.1) 03/24/20 05:45 Chloride 103 mmol/L (98-107) 03/24/20 05:45 Carbon Dioxide 27.2 mmol/L (21-32) 03/24/20 05:45 BUN 9 mg/dL (7-18) 03/24/20 05:45 Creatinine 0.68 mg/dL (0.55-1.02) 03/24/20 05:45 Est GFR (MDRD) Af Amer > 60 (>60) 03/24/20 05:45 Est GFR (MDRD) Non-Af > 60 (>60) 03/24/20 05:45 Glucose 156 mg/dL (65-99) H 03/24/20 05:45 Calcium 7.8 mg/dL (8.5-10.1) L 03/24/20 05:45 Corrected Calcium 9.5 mg/dL (8.5-10.1) 03/24/20 05:45 Magnesium 1.9 mg/dL (1.7-2.9) 03/22/20 05:38 Total Bilirubin 0.20 mg/dL (0.2-1.0) 03/24/20 05:45 AST 26 Units/L (15-37) 03/24/20 05:45 ALT 25 Units/L (12-78) 03/24/20 05:45 Alkaline Phosphatase 49 Units/L (46-116) 03/24/20 05:45 Total Protein 5.3 g/dL (6.4-8.2) L 03/24/20 05:45 Albumin 1.9 g/dL (3.4-5.0) L 03/24/20 05:45 Globulin 3.4 g/dL (2.5-4.5) 03/24/20 05:45 Albumin/Globulin Ratio 0.6 Ratio (1.1-2.1) L 03/24/20 05:45 Specimen Type Clean catch urine 03/20/20 19:25 Urine Color Yellow (YELLOW) 03/20/20 19:25 Urine Appearance Clear (CLEAR) 03/20/20 19:25 Urine pH 7.0 (5.0 - 8.0) 03/20/20 19:25 Ur Specific [place] 1.010 (1.000-1.030) 03/20/20 19:25 Urine Protein Negative (NEGATIVE) 03/20/20 19:25 Urine Glucose (UA) Negative (NEGATIVE) 03/20/20 19:25 Urine Ketones Negative (NEGATIVE) 03/20/20 19:25 Urine Occult Blood 1+ (NEGATIVE) 03/20/20 19:25 Urine Nitrite Negative (NEGATIVE) 03/20/20 19:25 Urine Bilirubin Negative (NEGATIVE) 03/20/20 19:25 Urine Urobilinogen Normal (NORMAL) 03/20/20 19:25 Ur Leukocyte Esterase 1+ (NEGATIVE) 03/20/20 19:25 Urine RBC 3-5 /HPF (0-3) A 03/20/20 19:25 Urine WBC 3-5 /HPF (0-5) 03/20/20 19:25 Ur Squamous Epith Cells Moderate /HPF (NEGATIVE) 03/20/20 19:25 Urine Bacteria Trace /HPF (NEGATIVE) 03/20/20 19:25 Ur Culture Indicated? No/not indicated 03/20/20 19:25 Stl C. diff Tox B Gene Negative (NEGATIVE) 03/23/20 07:48 Stl C. diff 027-NAP1-BI Negative (NEGATIVE) 03/23/20 07:48 Tissue Pathology To follow 03/23/20 07:41
[2020-03-24] MEDS ORDERED: ALBUMIN HUMAN 25%- 100 ML 100 ML IV NR (12:00)
[2020-03-24] MEDS: LASIX IVP SCH (13:18)
[2020-03-25] MEDS: DILAUDID INJ IVP PRN ×4 (02:00→22:55)
[2020-03-25] MEDS: ZOFRAN INJ 4 MG VIAL IVP PRN (02:10)
[2020-03-25] MEDS: SOLU-Medrol 40 MG VIAL IVP SCH ×3 (05:27→21:15)
[2020-03-25] MEDS: FLAGYL IV PREMIX 500 MG BAG 500 MG/100 ML BAG IV SCH ×3 (05:30→21:15)
[2020-03-25 06:09] LABS: BASOPHILS # (AUTO) 0.1 X10^3/uL (0.0-0.1); BASOPHILS % (AUTO) 0.8 % (0.2-1.0); EOSINOPHILS % (AUTO) 0.1 % (0.9-2.9); HEMATOCRIT 31.1 % (36.0-47.0); HEMOGLOBIN 10.2 g/dL (12.0-16.0); LYMPHOCYTES # (AUTO) 0.8 X10^3/uL (1.3-2.9); LYMPHOCYTES % (AUTO) 11.5 % (21.0-51.0); MEAN CORPUSCULAR HEMOGLOBIN 29.2 pg (27.0-34.0); MEAN CORPUSCULAR HGB CONC 32.8 g/dL (33.0-35.0); MEAN CORPUSCULAR VOLUME 89.2 fL (80.0-100.0); MEAN PLATELET VOLUME 9.2 fL (7.4-11.0); MONOCYTES # (AUTO) 0.2 x10^3/uL (0.3-0.8); MONOCYTES % (AUTO) 3.7 % (0.0-13.0); NEUTROPHILS # (AUTO) 5.6 x10^3/uL (2.2-4.8); NEUTROPHILS % (AUTO) 83.9 % (42.0-75.0); PLATELET COUNT 240 X10^3/uL (150.0-450.0); RED BLOOD COUNT 3.48 X10^6/uL (3.5-5.4); RED CELL DISTRIBUTION WIDTH 14.3 % (11.6-16.5); WHITE BLOOD COUNT 6.7 X10^3/uL (3.6-10.0)
[2020-03-25 06:43] LABS: ALANINE AMINOTRANSFERASE 32 Units/L (12-78); ALBUMIN 2.4 g/dL (3.4-5.0); ALKALINE PHOSPHATASE 52 Units/L (46-116); ASPARTATE AMINO TRANSFERASE 23 Units/L (15-37); BLOOD UREA NITROGEN 12 mg/dL (7-18); CALCIUM 7.9 mg/dL (8.5-10.1); CARBON DIOXIDE 26.7 mmol/L (21-32); CHLORIDE 100 mmol/L (98-107); COR CA(FOR HYPOALB) 9.2 mg/dL (8.5-10.1); COR NA(FOR HYPERGLY) 133 mmol/L (136-145); CREATININE 0.72 mg/dL (0.55-1.02); SODIUM 132 mmol/L (136-145); TOTAL PROTEIN 5.4 g/dL (6.4-8.2); eGFR NON BLACK RACES > 60 (>60)
[2020-03-25 06:52] LABS: BAND NEUTROPHILS % 2 % (0-10)
[2020-03-25 06:53] LABS: PLATELET MORPHOLOGY COMMENT NORMAL (NORMAL)
[2020-03-25] MEDS: LASIX IVP SCH (08:27)
[2020-03-25] MEDS: CIPRO IV 400 MG PREMIX* 400 MG/200 ML IV.SOLN. IV SCH (08:27)
[2020-03-25] MEDS: NS + KCL 20 MEQ/L 1,000 ML IV SCH ×2 (08:27→08:52)
[2020-03-25] MEDS: K-DUR TAB 20 MEQ PO PRN ×2 (08:28→21:16)
[2020-03-25] MEDS: PROTONIX INJ 40 MG VIAL IVP SCH ×2 (08:28→21:14)
--- NOTE | 2020-03-25 09:04 | DR.PROGNOT ---
Hospital Progress Notes - Progress Note for Day of: Progress Note Date: 03/25/20 - Chief Complaint Chief Complaint: c/o lower abdominal pain ater meals . no nausea or vomiting .. having frequent loose BM, no bleeding. still having peripheral edema. afebrile . - Past Medical Family Social History Past Med/Fam/Surg Hx: No changes since H&P Allergies: Allergies No Known Drug Allergies Allergy (Verified 03/14/20 08:09) - Review Of Systems ROS: No change since H&P - Vital Signs Vital Signs: Temperature 97.8 F Pulse Rate [Right Brachial] 67 Pulse Rate 59 Respiratory Rate 18 Blood Pressure [Right Arm] 128/61 Blood Pressure [Left Arm] 145/65 Blood Pressure 127/71 O2 Sat by Pulse Oximetry 95 - Physical Exam Oriented: Normal Eyes: Normal Ear: Normal Nose: Normal Throat: Normal Respiratory: Normal Cardiovascular: Normal GI:Auscultation: Decreased GI:Palpation: Normal GI: Tenderness: Diffuse (lower abdominal tenderness mainly suprapubic area .), Mild Skin: Normal Musculoskeletal: Normal Psychiatric: Normal Mood Description: Calm Affect: Normal Speech Pattern: Clear, Appropriate - Laboratory and Diagnostics Result Diagrams: 03/25/20 05:40 03/25/20 05:40 Labs: 03/20/20 23:53 Stool Stool Culture - Final 03/20/20 23:53 Stool - Final Laboratory WBC 6.7 X10^3/uL (3.6-10.0) 03/25/20 05:40 RBC 3.48 X10^6/uL (3.5-5.4) L 03/25/20 05:40 Hgb 10.2 g/dL (12.0-16.0) L 03/25/20 05:40 Hct 31.1 % (36.0-47.0) L 03/25/20 05:40 MCV 89.2 fL (80.0-100.0) 03/25/20 05:40 MCH 29.2 pg (27.0-34.0) 03/25/20 05:40 MCHC 32.8 g/dL (33.0-35.0) L 03/25/20 05:40 RDW 14.3 % (11.6-16.5) 03/25/20 05:40 Plt Count 240 X10^3/uL (150.0-450.0) 03/25/20 05:40 Plt Count Comment Adequate (ADEQUATE) 03/25/20 05:40 MPV 9.2 fL (7.4-11.0) 03/25/20 05:40 Neut % (Auto) 83.9 % (42.0-75.0) H 03/25/20 05:40 Lymph % (Auto) 11.5 % (21.0-51.0) L 03/25/20 05:40 [place] % (Auto) 3.7 % (0.0-13.0) 03/25/20 05:40 Eos % (Auto) 0.1 % (0.9-2.9) L 03/25/20 05:40 Baso % (Auto) 0.8 % (0.2-1.0) 03/25/20 05:40 Neut # (Auto) 5.6 x10^3/uL (2.2-4.8) H 03/25/20 05:40 Lymph # (Auto) 0.8 X10^3/uL (1.3-2.9) L 03/25/20 05:40 [place] # (Auto) 0.2 x10^3/uL (0.3-0.8) L 03/25/20 05:40 Eos # (Auto) 0.0 x10^3/uL (0.0-0.2) 03/25/20 05:40 Baso # (Auto) 0.1 X10^3/uL (0.0-0.1) 03/25/20 05:40 Absolute Nucleated RBC 0.2 /100WBC 03/25/20 05:40 Total Counted 100 03/25/20 05:40 Neutrophils % (Manual) 69 % (39-76) 03/25/20 05:40 Band Neutrophils % 2 % (0-10) 03/25/20 05:40 Lymphocytes % (Manual) 24 % (13-43) 03/25/20 05:40 Monocytes % (Manual) 5 % (4-9) 03/25/20 05:40 Plt Morphology Comment Normal (NORMAL) 03/25/20 05:40 RBC Morphology Normal (NORMAL) 03/25/20 05:40 ESR 77 MM/HOUR (0-20) H 03/20/20 14:20 Sodium 132 mmol/L (136-145) L 03/25/20 05:40 Corrected Sodium 133 mmol/L (136-145) L 03/25/20 05:40 Potassium 3.5 mmol/L (3.5-5.1) 03/25/20 05:40 Chloride 100 mmol/L (98-107) 03/25/20 05:40 Carbon Dioxide 26.7 mmol/L (21-32) 03/25/20 05:40 BUN 12 mg/dL (7-18) 03/25/20 05:40 Creatinine 0.72 mg/dL (0.55-1.02) 03/25/20 05:40 Est GFR (MDRD) Af Amer > 60 (>60) 03/25/20 05:40 Est GFR (MDRD) Non-Af > 60 (>60) 03/25/20 05:40 Glucose 162 mg/dL (65-99) H 03/25/20 05:40 Calcium 7.9 mg/dL (8.5-10.1) L 03/25/20 05:40 Corrected Calcium 9.2 mg/dL (8.5-10.1) 03/25/20 05:40 Magnesium 1.9 mg/dL (1.7-2.9) 03/22/20 05:38 Total Bilirubin 0.20 mg/dL (0.2-1.0) 03/25/20 05:40 AST 23 Units/L (15-37) 03/25/20 05:40 ALT 32 Units/L (12-78) 03/25/20 05:40 Alkaline Phosphatase 52 Units/L (46-116) 03/25/20 05:40 Total Protein 5.4 g/dL (6.4-8.2) L 03/25/20 05:40 Albumin 2.4 g/dL (3.4-5.0) L 03/25/20 05:40 Globulin 3.0 g/dL (2.5-4.5) 03/25/20 05:40 Albumin/Globulin Ratio 0.8 Ratio (1.1-2.1) L 03/25/20 05:40 Specimen Type Clean catch urine 03/20/20 19:25 Urine Color Yellow (YELLOW) 03/20/20 19:25 Urine Appearance Clear (CLEAR) 03/20/20 19:25 Urine pH 7.0 (5.0 - 8.0) 03/20/20 19:25 Ur Specific [place] 1.010 (1.000-1.030) 03/20/20 19:25 Urine Protein Negative (NEGATIVE) 03/20/20 19:25 Urine Glucose (UA) Negative (NEGATIVE) 03/20/20 19:25 Urine Ketones Negative (NEGATIVE) 03/20/20 19:25 Urine Occult Blood 1+ (NEGATIVE) 03/20/20 19:25 Urine Nitrite Negative (NEGATIVE) 03/20/20 19:25 Urine Bilirubin Negative (NEGATIVE) 03/20/20 19:25 Urine Urobilinogen Normal (NORMAL) 03/20/20 19:25 Ur Leukocyte Esterase 1+ (NEGATIVE) 03/20/20 19:25 Urine RBC 3-5 /HPF (0-3) A 03/20/20 19:25 Urine WBC 3-5 /HPF (0-5) 03/20/20 19:25 Ur Squamous Epith Cells Moderate /HPF (NEGATIVE) 03/20/20 19:25 Urine Bacteria Trace /HPF (NEGATIVE) 03/20/20 19:25 Ur Culture Indicated? No/not indicated 03/20/20 19:25 Stl C. diff Tox B Gene Negative (NEGATIVE) 03/23/20 07:48 Stl C. diff 027-NAP1-BI Negative (NEGATIVE) 03/23/20 07:48 Tissue Pathology To follow 03/23/20 07:41 - Assessment and Plan 1: acute colitis , pending pathology report. cholelithiasis . reduce IVF , d/c Cipro and add Azulfidine , IV steroids , lasix and pain control . DVT prophylaxis . back to full liquid only . - Problem Patient Problems: Patient Problems Ulcerative colitis (Acute) K51.90 Hypomagnesemia (Acute) E83.42 Hypokalemia (Acute) E87.6 Abdominal pain (Acute) R10.9 Rectal bleeding (Acute) K62.5 Colitis (Acute) K52.9
--- NOTE | 2020-03-25 09:25 | PCM.PROG ---
Progress Note - Progress Note for Day of Date of Exam: 03/25/20 - Subjective Subjective: IS BEING TREATED FOR ABDOMINAL PAIN, COLITIS, AND RECTAL BLEEDING. PERFORMED A COLONOSCOPY ON 03/23/20. IT REVEALED: Severe colitis involving the proximal colon. Inflammation is involving more of the right colon and to a lesser extent the sigmoid and rectum. TODAY, SHE IS ALERT AND ORIENTED, WALKING AROUND ROOM ON MORNING ROUNDS. SHE CONTINUES WITH COMPLAINTS OF MILD ABDOMINAL PAIN AND LOOSE STOOLS THIS MORNING. SHE IS ON A SOFT DIET AND TOLERATING WELL. HER VITALS THIS MORNING ARE: 97.8-67-18-95%-128/61. LABS WERE OBTAINED. ABNORMAL LAB VALUES INCLUDE THE FOLLOWING: RBC 3.48, HGB 10.2, HCT 31.1, SODIUM 132, GLUCOSE 162, CALCIUM 7.9, TOTAL PROTEIN 5.4, ALBUMIN 2.4. PATHOLOGY REPORT FROM [facility] IS PENDING. SHE IS CURRENTLY RECEIVING CIPRO 400MG IV Q12H, FLAGYL 500MG IV Q8H, NS WITH 20MEQ KCL AT 50 ML/HR, DOLU-MEDROL 80MG IV Q8H, DILAUDID 0.5MG IV Q3H PRN, AND PROTONIX 40MG IV BID. WE WILL CONTINUE WITH CURRENT PLAN OF CARE TODAY. OTHERWISE, WE PLAN TO FOLLOW UP WITH AM LABS AND CONTINUE TO MONITOR. - Past Medical Family Social History Past Med/Fam/Surg Hx: No changes since H&P Allergies: Allergies No Known Drug Allergies Allergy (Verified 03/14/20 08:09) - Review of Systems ROS: No change since H&P - Vital Signs and I&O's Vital Signs: Temperature 97.8 F Pulse Rate [Right Brachial] 67 Pulse Rate 59 Respiratory Rate 19 Blood Pressure [Right Arm] 128/61 Blood Pressure [Left Arm] 145/65 Blood Pressure 127/71 O2 Sat by Pulse Oximetry 95 Intake and Output: Intake & Output 03/22/20 03/23/20 03/24/20 03/25/20 11:59 11:59 11:59 11:59 Intake Total 2300 / 2300 5215 / 5215 2490 / 2490 3974 / 3974 Balance 2300 / 2300 5215 / 5215 2490 / 2490 3974 / 3974 - Physical Exam Oriented: Normal Eyes: Normal Ear: Normal Nose: Normal Throat: Normal Respiratory: Normal Cardiovascular: Normal Auscultation: Bowel Sounds: Decreased Tenderness: Diffuse (lower abdominal tenderness mainly suprapubic area .), Mild Skin: Normal Musculoskeletal: Normal Psychiatric: Normal Mood Description: Calm Affect: Normal Speech Pattern: Clear, Appropriate - Laboratory and Diagnostics Result Diagrams: 03/25/20 05:40 03/25/20 05:40 Labs: 03/20/20 23:53 Stool Stool Culture - Final 03/20/20 23:53 Stool - Final Laboratory WBC 6.7 X10^3/uL (3.6-10.0) 03/25/20 05:40 RBC 3.48 X10^6/uL (3.5-5.4) L 03/25/20 05:40 Hgb 10.2 g/dL (12.0-16.0) L 03/25/20 05:40 Hct 31.1 % (36.0-47.0) L 03/25/20 05:40 MCV 89.2 fL (80.0-100.0) 03/25/20 05:40 MCH 29.2 pg (27.0-34.0) 03/25/20 05:40 MCHC 32.8 g/dL (33.0-35.0) L 03/25/20 05:40 RDW 14.3 % (11.6-16.5) 03/25/20 05:40 Plt Count 240 X10^3/uL (150.0-450.0) 03/25/20 05:40 Plt Count Comment Adequate (ADEQUATE) 03/25/20 05:40 MPV 9.2 fL (7.4-11.0) 03/25/20 05:40 Neut % (Auto) 83.9 % (42.0-75.0) H 03/25/20 05:40 Lymph % (Auto) 11.5 % (21.0-51.0) L 03/25/20 05:40 [place] % (Auto) 3.7 % (0.0-13.0) 03/25/20 05:40 Eos % (Auto) 0.1 % (0.9-2.9) L 03/25/20 05:40 Baso % (Auto) 0.8 % (0.2-1.0) 03/25/20 05:40 Neut # (Auto) 5.6 x10^3/uL (2.2-4.8) H 03/25/20 05:40 Lymph # (Auto) 0.8 X10^3/uL (1.3-2.9) L 03/25/20 05:40 [place] # (Auto) 0.2 x10^3/uL (0.3-0.8) L 03/25/20 05:40 Eos # (Auto) 0.0 x10^3/uL (0.0-0.2) 03/25/20 05:40 Baso # (Auto) 0.1 X10^3/uL (0.0-0.1) 03/25/20 05:40 Absolute Nucleated RBC 0.2 /100WBC 03/25/20 05:40 Total Counted 100 03/25/20 05:40 Neutrophils % (Manual) 69 % (39-76) 03/25/20 05:40 Band Neutrophils % 2 % (0-10) 03/25/20 05:40 Lymphocytes % (Manual) 24 % (13-43) 03/25/20 05:40 Monocytes % (Manual) 5 % (4-9) 03/25/20 05:40 Plt Morphology Comment Normal (NORMAL) 03/25/20 05:40 RBC Morphology Normal (NORMAL) 03/25/20 05:40 ESR 77 MM/HOUR (0-20) H 03/20/20 14:20 Sodium 132 mmol/L (136-145) L 03/25/20 05:40 Corrected Sodium 133 mmol/L (136-145) L 03/25/20 05:40 Potassium 3.5 mmol/L (3.5-5.1) 03/25/20 05:40 Chloride 100 mmol/L (98-107) 03/25/20 05:40 Carbon Dioxide 26.7 mmol/L (21-32) 03/25/20 05:40 BUN 12 mg/dL (7-18) 03/25/20 05:40 Creatinine 0.72 mg/dL (0.55-1.02) 03/25/20 05:40 Est GFR (MDRD) Af Amer > 60 (>60) 03/25/20 05:40 Est GFR (MDRD) Non-Af > 60 (>60) 03/25/20 05:40 Glucose 162 mg/dL (65-99) H 03/25/20 05:40 Calcium 7.9 mg/dL (8.5-10.1) L 03/25/20 05:40 Corrected Calcium 9.2 mg/dL (8.5-10.1) 03/25/20 05:40 Magnesium 1.9 mg/dL (1.7-2.9) 03/22/20 05:38 Total Bilirubin 0.20 mg/dL (0.2-1.0) 03/25/20 05:40 AST 23 Units/L (15-37) 03/25/20 05:40 ALT 32 Units/L (12-78) 03/25/20 05:40 Alkaline Phosphatase 52 Units/L (46-116) 03/25/20 05:40 Total Protein 5.4 g/dL (6.4-8.2) L 03/25/20 05:40 Albumin 2.4 g/dL (3.4-5.0) L 03/25/20 05:40 Globulin 3.0 g/dL (2.5-4.5) 03/25/20 05:40 Albumin/Globulin Ratio 0.8 Ratio (1.1-2.1) L 03/25/20 05:40 Specimen Type Clean catch urine 03/20/20 19:25 Urine Color Yellow (YELLOW) 03/20/20 19:25 Urine Appearance Clear (CLEAR) 03/20/20 19:25 Urine pH 7.0 (5.0 - 8.0) 03/20/20 19:25 Ur Specific [employer] 1.010 (1.000-1.030) 03/20/20 19:25 Urine Protein Negative (NEGATIVE) 03/20/20 19:25 Urine Glucose (UA) Negative (NEGATIVE) 03/20/20 19:25 Urine Ketones Negative (NEGATIVE) 03/20/20 19: Urine Occult Blood 1+ (NEGATIVE) 03/20/20 19: Urine Nitrite Negative (NEGATIVE) 03/20/20 19:25 Urine Bilirubin Negative (NEGATIVE) 03/20/20 19:25 Urine Urobilinogen Normal (NORMAL) 03/20/20 19:25 Ur Leukocyte Esterase 1+ (NEGATIVE) 03/20/20 19:25 Urine RBC 3-5 /HPF (0-3) A 03/20/20 19:25 Urine WBC 3-5 /HPF (0-5) 03/20/20 19:25 Ur Squamous Epith Cells Moderate /HPF (NEGATIVE) 03/20/20 19:25 Urine Bacteria Trace /HPF (NEGATIVE) 03/20/20 19:25 Ur Culture Indicated? No/not indicated 03/20/20 19:25 Stl C. diff Tox B Gene Negative (NEGATIVE) 03/23/20 07:48 Stl C. diff [id number] Negative (NEGATIVE) 03/23/20 07:48 Tissue Pathology To follow 03/23/20 07:41
[2020-03-25] MEDS: AZULFIDINE PO SCH ×2 (14:25→21:14)
[2020-03-26] MEDS: DILAUDID INJ IVP PRN (05:10)
[2020-03-26] MEDS: SOLU-Medrol 40 MG VIAL IVP SCH (05:19)
[2020-03-26] MEDS: FLAGYL IV PREMIX 500 MG BAG 500 MG/100 ML BAG IV SCH (05:19)
[2020-03-26] MEDS: AZULFIDINE PO SCH (05:19)
[2020-03-26 06:09] LABS: BASOPHILS % (AUTO) 0.2 % (0.2-1.0); HEMATOCRIT 33.3 % (36.0-47.0); HEMOGLOBIN 10.9 g/dL (12.0-16.0); LYMPHOCYTES # (AUTO) 0.8 X10^3/uL (1.3-2.9); LYMPHOCYTES % (AUTO) 10.7 % (21.0-51.0); MEAN CORPUSCULAR HEMOGLOBIN 29.1 pg (27.0-34.0); MEAN CORPUSCULAR HGB CONC 32.7 g/dL (33.0-35.0); MEAN CORPUSCULAR VOLUME 88.9 fL (80.0-100.0); MEAN PLATELET VOLUME 9.2 fL (7.4-11.0); MONOCYTES # (AUTO) 0.2 x10^3/uL (0.3-0.8); MONOCYTES % (AUTO) 3.2 % (0.0-13.0); NEUTROPHILS # (AUTO) 6.4 x10^3/uL (2.2-4.8); NEUTROPHILS % (AUTO) 85.9 % (42.0-75.0); PLATELET COUNT 275 X10^3/uL (150.0-450.0); RED BLOOD COUNT 3.74 X10^6/uL (3.5-5.4); RED CELL DISTRIBUTION WIDTH 14.3 % (11.6-16.5); WHITE BLOOD COUNT 7.4 X10^3/uL (3.6-10.0)
[2020-03-26 06:29] LABS: ALANINE AMINOTRANSFERASE 32 Units/L (12-78); ALBUMIN 2.4 g/dL (3.4-5.0); ALKALINE PHOSPHATASE 55 Units/L (46-116); ASPARTATE AMINO TRANSFERASE 21 Units/L (15-37); BLOOD UREA NITROGEN 12 mg/dL (7-18); CARBON DIOXIDE 30.8 mmol/L (21-32); CHLORIDE 99 mmol/L (98-107); COR CA(FOR HYPOALB) 9.3 mg/dL (8.5-10.1); COR NA(FOR HYPERGLY) 135 mmol/L (136-145); CREATININE 0.87 mg/dL (0.55-1.02); MAGNESIUM 1.9 mg/dL (1.7-2.9); SODIUM 134 mmol/L (136-145); TOTAL PROTEIN 5.6 g/dL (6.4-8.2); eGFR NON BLACK RACES > 60 (>60)
[2020-03-26 06:35] LABS: PLATELET MORPHOLOGY COMMENT NORMAL (NORMAL)
[2020-03-26] MEDS: K-DUR TAB 20 MEQ PO PRN (08:27)
[2020-03-26] MEDS: LASIX IVP SCH (08:28)
[2020-03-26] MEDS: PROTONIX INJ 40 MG VIAL IVP SCH (08:29)
[2020-03-26] MEDS ORDERED: MAG-OX TAB PO SCH (08:30)
[2020-03-26] MEDS ORDERED: PREDNISONE TAB 20 MG PO SCH (10:00)
--- NOTE | 2020-03-26 11:36 | PCM.PROG ---
Progress Note Progress Note for Day of Date of Exam: 03/26/20 Subjective Subjective: Patient seen at bedside, reports doing well. Her abdominal pain has improved, more in the lower abdomen now. She has been tolerating full liquids well. She did try soft diet this morning with eggs and grits but had abdominal pain and diarrhea. She states her stool is starting to form, no blood. She still has leg edema. Denies nausea or vomiting. Denies fever or chills. Due to peripheral edema, she was started on lasix 20 mg IV daily. She has been urinating a lot. Labs: K: 3.7 M.9 Hgb: 10.9 Plan: follow surgery recommendations, switch to PO steroids, continue lasix. Continue full liquid diet. Patient is stable for discharge, needs f/u with PCP in 3-5 days, follow up with Dr. Abel for pathology results. Past Medical Family Social History Past Med/Fam/Surg Hx: No changes since H&P Allergies: Allergies No Known Drug Allergies Allergy (Verified 03/14/20 08:09) Review of Systems ROS: No change since H&P Vital Signs and I&O's Vital Signs: Temperature 97.7 F Pulse Rate [Left Brachial] 50 Pulse Rate [Right Brachial] 51 Pulse Rate 59 Respiratory Rate 20 Blood Pressure [Right Arm] 155/69 Blood Pressure [Left Arm] 151/66 Blood Pressure 127/71 O2 Sat by Pulse Oximetry 94 Intake and Output: Intake & Output 03/23/20 03/24/20 03/25/20 03/26/20 23:59 23:59 23:59 23:59 Intake Total 3905 / 3905 3071 / 3071 3463 / 3463 562 / 562 Balance 3905 / 3905 3071 / 3071 3463 / 3463 562 / 562 Physical Exam Oriented: Normal Eyes: Normal Ear: Normal Nose: Normal Throat: Normal Respiratory: Normal Cardiovascular: Normal and Edema Auscultation: Bowel Sounds: Normal Tenderness: Normal Skin: Normal Musculoskeletal: Normal Psychiatric: Normal Mood Description: Calm Affect: Normal Speech Pattern: Clear and Appropriate Laboratory and Diagnostics Result Diagrams: 03/26/20 05:30 03/26/20 05:30 Labs: 03/20/20 23:53 Stool Stool Culture - Final 03/20/20 23:53 Stool - Final Laboratory WBC 7.4 X10^3/uL (3.6-10.0) 03/26/20 05:30 RBC 3.74 X10^6/uL (3.5-5.4) 03/26/20 05:30 Hgb 10.9 g/dL (12.0-16.0) L 03/26/20 05:30 Hct 33.3 % (36.0-47.0) L 03/26/20 05:30 MCV 88.9 fL (80.0-100.0) 03/26/20 05:30 MCH 29.1 pg (27.0-34.0) 03/26/20 05:30 MCHC 32.7 g/dL (33.0-35.0) L 03/26/20 05:30 RDW 14.3 % (11.6-16.5) 03/26/20 05:30 Plt Count 275 X10^3/uL (150.0-450.0) 03/26/20 05:30 Plt Count Comment Increased (ADEQUATE) A 03/26/20 05:30 MPV 9.2 fL (7.4-11.0) 03/26/20 05:30 Neut % (Auto) 85.9 % (42.0-75.0) H 03/26/20 05:30 Lymph % (Auto) 10.7 % (21.0-51.0) L 03/26/20 05:30 [place] % (Auto) 3.2 % (0.0-13.0) 03/26/20 05:30 Eos % (Auto) 0.0 % (0.9-2.9) L 03/26/20 05:30 Baso % (Auto) 0.2 % (0.2-1.0) 03/26/20 05:30 Neut # (Auto) 6.4 x10^3/uL (2.2-4.8) H 03/26/20 05:30 Lymph # (Auto) 0.8 X10^3/uL (1.3-2.9) L 03/26/20 05:30 [place]ie # (Auto) 0.2 x10^3/uL (0.3-0.8) L 03/26/20 05:30 Eos # (Auto) 0.0 x10^3/uL (0.0-0.2) 03/26/20 05:30 Baso # (Auto) 0.0 X10^3/uL (0.0-0.1) 03/26/20 05:30 Absolute Nucleated RBC 0.1 /100WBC 03/26/20 05:30 Total Counted 100 03/26/20 05:30 Neutrophils % (Manual) 72 % (39-76) 03/26/20 05:30 Band Neutrophils % 2 % (0-10) 03/25/20 05:40 Lymphocytes % (Manual) 25 % (13-43) 03/26/20 05:30 Monocytes % (Manual) 3 % (4-9) L 03/26/20 05:30 Plt Morphology Comment Normal (NORMAL) 03/26/20 05:30 RBC Morphology Normal (NORMAL) 03/26/20 05:30 ESR 77 MM/HOUR (0-20) H 03/20/20 14:20 Sodium 134 mmol/L (136-145) L 03/26/20 05:30 Corrected Sodium 135 mmol/L (136-145) L 03/26/20 05:30 Potassium 3.7 mmol/L (3.5-5.1) 03/26/20 05:30 Chloride 99 mmol/L (98-107) 03/26/20 05:30 Carbon Dioxide 30.8 mmol/L (21-32) 03/26/20 05:30 BUN 12 mg/dL (7-18) 03/26/20 05:30 Creatinine 0.87 mg/dL (0.55-1.02) 03/26/20 05:30 Est GFR (MDRD) Af Amer > 60 (>60) 03/26/20 05:30 Est GFR (MDRD) Non-Af > 60 (>60) 03/26/20 05:30 Glucose 156 mg/dL (65-99) H 03/26/20 05:30 Calcium 8.0 mg/dL (8.5-10.1) L 03/26/20 05:30 Corrected Calcium 9.3 mg/dL (8.5-10.1) 03/26/20 05:30 Magnesium 1.9 mg/dL (1.7-2.9) 03/26/20 05:30 Total Bilirubin 0.30 mg/dL (0.2-1.0) 03/26/20 05:30 AST 21 Units/L (15-37) 03/26/20 05:30 ALT 32 Units/L (12-78) 03/26/20 05:30 Alkaline Phosphatase 55 Units/L (46-116) 03/26/20 05:30 Total Protein 5.6 g/dL (6.4-8.2) L 03/26/20 05:30 Albumin 2.4 g/dL (3.4-5.0) L 03/26/20 05:30 Globulin 3.2 g/dL (2.5-4.5) 03/26/20 05:30 Albumin/Globulin Ratio 0.8 Ratio (1.1-2.1) L 03/26/20 05:30 Specimen Type Clean catch urine 03/20/20 19:25 Urine Color Yellow (YELLOW) 03/20/20 19:25 Urine Appearance Clear (CLEAR) 03/20/20 19:25 Urine pH 7.0 (5.0 - 8.0) 03/20/20 19:25 Ur Specific [place] 1.010 (1.000-1.030) 03/20/20 19:25 Urine Protein Negative (NEGATIVE) 03/20/20 19:25 Urine Glucose (UA) Negative (NEGATIVE) 03/20/20 19:25 Urine Ketones Negative (NEGATIVE) 03/20/20 19:25 Urine Occult Blood 1+ (NEGATIVE) 03/20/20 19:25 Urine Nitrite Negative (NEGATIVE) 03/20/20 19:25 Urine Bilirubin Negative (NEGATIVE) 03/20/20 19:25 Urine Urobilinogen Normal (NORMAL) 03/20/20 19:25 Ur Leukocyte Esterase 1+ (NEGATIVE) 03/20/20 19:25 Urine RBC 3-5 /HPF (0-3) A 03/20/20 19:25 Urine WBC 3-5 /HPF (0-5) 03/20/20 19:25 Ur Squamous Epith Cells Moderate /HPF (NEGATIVE) 03/20/20 19:25 Urine Bacteria Trace /HPF (NEGATIVE) 03/20/20 19:25 Ur Culture Indicated? No/not indicated 03/20/20 19:25 Stl C. diff Tox B Gene Negative (NEGATIVE) 03/23/20 07:48 Stl C. diff [id number] Negative (NEGATIVE) 03/23/20 07:48 Tissue Pathology To follow 03/23/20 07:41 Plan (1) Colitis: Status: Acute (2) Rectal bleeding: Status: Acute (3) Dehydration: Status: Acute (4) Diarrhea: Status: Acute Qualifiers: Diarrhea type: unspecified type Qualified Code(s): R19.7 - Diarrhea, unspecified (5) Hypokalemia: Status: Acute (6) Hypomagnesemia: Status: Acute
[2020-03-26 12:02] VITALS: BP 161/81
== END 2020-03-26 12:10 | disposition home or self-care (01) | DRG 386 ==
LOC: MED/SURG 12:53
PROVIDERS: ADMIT Surgery; ATTEND Surgery
DX: K80.18 Calculus of gallbladder with other cholecystitis without obstruction; K62.5 Hemorrhage of anus and rectum; E87.6 Hypokalemia; K51.019 Ulcerative (chronic) pancolitis with unspecified complications; I10 Essential (primary) hypertension; E86.0 Dehydration; R19.7 Diarrhea, unspecified; R10.84 Generalized abdominal pain; K64.9 Unspecified hemorrhoids; E83.42 Hypomagnesemia
CPT/HCPCS: 36415; 74022; 74177; 80053; 81001; 83735; 84132; 85025; 85652; 87045; 87427; 87449; 87493; 87899; A4222; C9113; J0744; J1170; J1940; J2405; J2704; J2920; J3475; J3480; J7030; J7512; P9047; S0030; S5010